=== PATIENT | female | born 1975 | race Caucasian/White ===

== ENCOUNTER 2025-09-04 10:54 | Outpatient (REF) | payer MEDICARE, MEDICAID, SELFPAY ==
--- NOTE | ~2025-09-04 | MM_ITS ---
EXAMINATION: DXA BONE DENSITY AXIAL HISTORY: OSTEOPOROSIS TECHNIQUE: [employer] Dual energy absorptiometry (DEXA) of the lumbar spine, total left hip, and femoral neck was performed. COMPARISON: None FINDINGS: The bone mineral density of the lumbar spine is 0.858 g/cm2, corresponding to a T-score of -2.7, and a Z-score of -2.7. This is indicative of osteoporosis. The bone mineral density of the left total hip is 0.993 g/cm2, corresponding to a T-score of -0.1, and a Z-score of 0.1. This is indicative of normal bone mineral density. The bone mineral density of the left femoral neck is 0.881 g/cm2, corresponding to a T-score of -1.1, and a Z-score of -0.6. This is indicative of osteopenia. FRACTURE RISK: The FRAX index suggests a ten year probability of major osteoporotic fracture of 6.6%, and of hip fracture 0.4%. MM/XR DEXA axial skeleton IMPRESSION: Based on bone mineral density, and according to World Health Organization (WHO) criteria, the diagnosis is consistent with osteoporosis based on lowest T score of -2.7 in the lumbar spine. Treatment Recommendations: NOF guidelines recommend consideration for treatment in postmenopausal women and men age 50 and older presenting with the following: -A hip or vertebral (clinical or morphometric) fracture. -T-score less than or equal to -2.5 at the femoral neck or spine after appropriate evaluation to exclude secondary causes. -Low bone mass at the hip or spine and a 10-year fracture probability by FRAX of greater than or equal to 3% for hip fracture or greater than or equal to 20% for major osteoporotic fracture based on the [place] adapted WHO algorithm. Other Recommendations: All treatment decisions require clinical judgment and consideration of individual patient factors, including patient preferences, comorbidities, previous drug use, risk factors not captured in the FRAX model (e.g. frailty, falls, vitamin D deficiency, increased bone turnover, interval significant decline in bone density) and possible under or overestimation of fracture risk by FRAX. Additional medical evaluation for secondary cause of low bone mineral density may be appropriate. FUTURE SCAN RECOMMENDATION: People with diagnosed cases of osteoporosis or at high risk for fracture should have regular bone mineral density tests. For patients eligible for Medicare, routine testing is allowed once every 2 years. The testing frequency can be increased to one year for patients who have rapidly progressing disease, those who are receiving or discontinuing medical therapy to restore bone mass, or have additional risk factors. Statistically, 68% of repeat scans fall within 1 SD (+/- 0.010 g/cm2 for AP spine L1-L4) and 1 SD (+/- 0.012 g/cm2 for femur total) FRAX is a trademark of the [employer] Met[employer] Disease, a World Health Organization (WHO) Collaborating Center. Electronically signed by: Glory Gallegos MD 09/04/2025 11:44 AM GENARO
--- OUTSIDE RECORDS SUMMARY | 2025-09-04 13:15 | XMS_ITS | Encounter Summary ---
Author Organization [facility] Address [address] [place] [address] Care Team Providers Care Network Operations Lead Name Role Phone Tre Zhoa MD Primary Care Provider [phone] Reason for Visit * Reason Comments Foot Pain Foot pain, right (Pr imary Dx); Hallux varus (acquired), right foot; Arthritis of right foot Encounter Details Date Type Department Care Team (Late st Contact Info) Description 09/04/2025 1:15 PM EST Office Visit Orthopedic Surgery - [place] [id number] [phone] Robert Palmer, DPM [address] [address] Post-operative state (Primary Dx) Social History Tobacco Use Types Packs/Day Years Used Date Smoking Tobacco: Former Cigarettes 0 Q uit: 10/05/2007 Smokeless Tobacco: Never Alcohol Use Standard Drinks/Week Comments Never 0 (1 standard drink = 0.6 oz pur e alcohol) Interpersonal Safety Answer Date Record ed Physical Abuse Unrecognized value 06/09/2025 Verbal Abuse Unrecognized value 06/09/2025 Comments No Sex and Gender Information Value Date Recorded Sex Assigned at Not on file Legal Sex Female 3:17 AM EST Gender Identity Not on file Sexual Orientation Not on file documented as of this encounter Plan of Treatment Pending Results Name Type Priority Associated Diagnoses Date /Time XR Foot 3+ Views Right Imaging Routine Post-operative state 09/04/2025 1:23 PM EST Scheduled Orders Name Type Priority Associated Diagnoses Orde r Schedule XR Foot 3+ Views Right Imaging Routine Post-operative state Expected: 09/04/2025, Expires: 09/04/2026 documented as of this encounter Visit Diagnoses Diagnosis Post-operative state- Primary Other postprocedural status documented in this encounter Care Teams Network Operations Lead Relationship Specialty Start Date End Date Tre Zhao MD [address] [place] [phone] PCP - General Internal Medicine 06/19/21 documented as of this encounter
--- OUTSIDE RECORDS SUMMARY | 2025-09-04 14:08 | XMS_ITS | Encounter Summary ---
Author Organization [facility] Address [address] [place] [address] Phone Care Team Providers Care Electrode Turner And Finisher Name Role Phone Tre Zhao MD Primary Care Provider [phone] Encounter Details Date Type Department Care Team (Late st Contact Info) Description 03/28/2024 Procedure Pass [facility], Ct Scan - [facility] [address] [place] [address] Social History Tobacco Use Types Packs/Day Years Used Date Smoking Tobacco: Former Passive Smoke Exposure: Never Smokeless Tobacco: Never Comments:Former smoker quit 15 yrs ago ~1ppd Alcohol Use Standard Drinks/Week Comments Never 0 (1 standard drink = 0.6 oz pur e alcohol) Education Answer Date Recorded Are you interested in more education? Not on rajeev e 01/30/2023 Are you concerned about learning? Not on file 01/30/2023 No 01/30/2023 No 01/30/2023 Food Answer Date Recorded Within the past 6 months we worried whether our food would run out before we got money to buy more. Never True 03/25/2024 Within the past 6 months the food we bought just didn't last and we didn't have enough money to get more. Never True Residential Stability Answer Date Recor ded What is your housing situation today? I have bridget sing 03/25/2024 How many times have you move d in the past 12 months? Zero (I did not move) 03/25/2024 Paying for Meds Answer Date Recorded Do you have trouble paying for medicines? No 03/25/2024 Paying Utility Bills Answer Date Record ed Do you have trouble paying your heating or elect ricity bill? No 03/25/2024 Transportation Answer Date Recorded Has the lack of transportati on kept you from medical appointments or from getting medications? No 03/25/2024 Digital Access Answer Date Recorded No 03/25/2024 Yes 03/25/2024 Do you have reliable internet access at home? Ye s 03/25/2024 Do you have a device (e.g., phone, tablet, computer) with a working camera? Yes 03/25/2024 Comments Unknown Sex and Gender Information Value Date Recorded Sex Assigned at Female 03/07/2024 8:13 AM EDT Legal Sex Female 9:26 PM EDT Gender Identity Female 03/07/2024 8:13 AM EDT Sexual Orientation Straight 03/07/2024 8: 15 AM EDT documented as of this encounter Plan of Treatment Upcoming Encounters Date Type Department Care Team (Late st Contact Info) Description 11/18/2025 10:15 AM EST Appointment [facility], Bone Density [address] [address] Vipul Arreaga MD [address] [place] [phone] [email or web address] documented as of this encounter Visit Diagnoses Not on filedocumented in this encounter Additional Health Concerns Infection Onset Date Last Indicated Resolved Time CoV-Risk 11/10/2024 11/10/2024 11/21/2024 1:22 AM EST RSV 11/10/2024 11/10/2024 11/17/2024 1:24 AM EST documented as of this encounter Care Teams Electrode Turner And Finisher Relationship Specialty Start Date End Date Tre Zhao MD [address] [place] [address] PCP - General Internal Medicine 12/22/21 documented as of this encounter Additional Source Comments The information contained in this document represents components of the legal health record. It is not the complete legal health record.[facility]
--- OUTSIDE RECORDS SUMMARY | 2025-09-04 14:08 | XMS_ITS | Encounter Summary ---
Author Organization [facility] Address [address] [place] [address] Phone Care Team Providers Care Feller Seam Operator Name Role Phone Tre Zhao MD Primary Care Provider [phone] Encounter Details Date Type Department Care Team (Late st Contact Info) Description 03/13/2024 Procedure Pass [facility], Ct Scan - [facility] [address] [place] [address] Social History Tobacco Use Types Packs/Day Years [...] got money to buy more. Never True 03/07/2024 Within the past 6 months the food we bought just didn't last and we didn't have enough money to get more. Never True Residential Stability Answer Date Recor ded What is your housing situation today? I have bridget sing 03/07/2024 How many times have you move d in the past 12 months? Zero (I did not move) 03/07/2024 Paying for Meds Answer Date Recorded Do you have trouble paying for medicines? No 03/07/2024 Paying Utility Bills Answer Date Record ed Do you have trouble paying your heating or elect ricity bill? No 03/07/2024 Transportation Answer Date Recorded Has the lack of transportati on kept you from medical appointments or from getting medications? No 03/07/2024 Digital Access Answer Date Recorded No 03/07/2024 Yes 03/07/2024 Do you have reliable internet access at home? Ye s 03/07/2024 Do you have a device (e.g., phone, tablet, computer) with a working camera? Yes 03/07/2024 Comments Unknown Sex and Gender Information Value Date Recorded Sex Assigned at Female 03/07/2024 8:13 AM EDT Legal Sex Female 9:26 PM EDT Gender Identity Female 03/07/2024 8:13 AM EDT Sexual Orientation Straight 03/07/2024 8: 15 AM EDT documented as of this encounter Plan of Treatment Upcoming Encounters Date Type Department Care Team (Late st Contact Info) Description 11/18/2025 10:15 AM EST Appointment [facility], Bone Density [address] [address] Vipul Arreaga MD [address] [place] [phone] [email or web address] documented as of this encounter Visit Diagnoses Not on filedocumented in this encounter Additional Health Concerns Infection Onset Date Last Indicated Resolved Time CoV-Risk 11/10/2024 11/10/2024 11/21/2024 1:22 AM EST RSV 11/10/2024 11/10/2024 11/17/2024 1:24 AM EST documented as of this encounter Care Teams Feller Seam Operator Relationship Specialty Start Date End Date Tre Zhao MD [address] [place] [phone] PCP - General Internal Medicine 12/22/21 documented as of this encounter Additional Source Comments The information contained in this document represents components of the legal health record. It is not the complete legal health record.[facility]
--- OUTSIDE RECORDS SUMMARY | 2025-09-04 14:08 | XMS_ITS | Encounter Summary ---
Author Organization [facility] Address [address] [place] [address] Phone Care Team Providers Care Residential Gas Heat Technician Name Role Phone Tre Zhao MD Primary Care Provider [phone] Encounter Details Date Type Department Care Team ([facility] st Contact Info) Description 03/11/2024 Procedure Pass [place] Admitting Dept - Virtual Department [address] [place] [address] Social History Tobacco Use Types Packs/Day Years [...] Info) Description 11/18/2025 10:15 AM EST Appointment [facility], Bone Density [address] [address] Vipul Arreaga MD [address] [place] [phone] [email or web address] documented as of this encounter Visit Diagnoses Not on filedocumented in this encounter Additional Health Concerns Infection Onset Date Last Indicated Resolved Time CoV-Risk 11/10/2024 11/10/2024 11/21/2024 1:22 AM EST RSV 11/10/2024 11/10/2024 11/17/2024 1:24 AM EST documented as of this encounter Care Teams Residential Gas Heat Technician Relationship Specialty Start Date End Date Tre Zhao MD [address] [place] [phone] PCP - General Internal Medicine 12/22/21 documented as of this encounter Additional Source Comments The information contained in this document represents components of the legal health record. It is not the complete legal health record.[facility]
--- OUTSIDE RECORDS SUMMARY | 2025-09-04 14:08 | XMS_ITS | Encounter Summary ---
Author Organization [facility] Address [address] [place] [address] Phone Care Team Providers Care Ship Design Teacher Name Role Phone Tre Zhao MD Primary Care Provider Encounter Details Date Type Department Care Team ([facility] st Contact Info) Description 03/30/2024 Procedure Pass [place] Admitting Dept - Virtual Department [address] [place] [address] Social History Tobacco Use Types Packs/Day Years [...] Info) Description 11/18/2025 10:15 AM EST Appointment [facility], Bone Density [address] [address] Vipul Arreaga MD [address] [place] [phone] [email or web address] documented as of this encounter Visit Diagnoses Not on filedocumented in this encounter Additional Health Concerns Infection Onset Date Last Indicated Resolved Time CoV-Risk 11/10/2024 11/10/2024 11/21/2024 1:22 AM EST RSV 11/10/2024 11/10/2024 11/17/2024 1:24 AM EST documented as of this encounter Care Teams Ship Design Teacher Relationship Specialty Start Date End Date Tre Zhao MD [address] [place] [phone] PCP - General Internal Medicine 12/22/21 documented as of this encounter Additional Source Comments The information contained in this document represents components of the legal health record. It is not the complete legal health record.[facility]
--- OUTSIDE RECORDS SUMMARY | 2025-09-04 14:08 | XMS_ITS | Encounter Summary ---
Author Organization [facility] Address [address] [facility] [address] [place] [address] Phone Care Team Providers Care Ocean Freight Agent Name Role Phone Unknown, Unknown Primary Care Provider Tre Gupta MD Primary Care Provider [phone] Reason for Referral * Occupational Therapy (Routine) - Closed Specialty Diagnoses / Procedures Referred By Ernesto farrell Referred To Contact Occupational Therapy Diagnoses Encounter for rehabilitation Right elbow pain, Procedures evaluate & treat [facility] [address] [place] [address] Phone: tel: fax: [facility] [address] [place] [address] Phone: tel: Referral ID Status Reason Start Date Expiration Date Visits Re quested Visits Authorized [id number] Closed 08/08/2021 10/04/2021 5 5 Encounter Details Date Type Department Care Team (Latest Contact Info) Description 07/23/2021 Transcribe Orders [facility] Rehabilitation Services [address] [place] [address] [facility] [address] [place] [address] Encounter for rehabilitation (Primary Dx) Social History Tobacco Use Types Packs/Day Years Used Date Smoking Tobacco: Never Assessed Comments Unknown Sex and Gender Information Value Date Recorded Sex Assigned at Female 03/07/2024 8:13 AM EDT Legal Sex Female 9:26 PM EDT Gender Identity Female 03/07/2024 8:13 AM EDT Sexual Orientation Straight 03/07/2024 8: 15 AM EDT documented as of this encounter Plan of Treatment Upcoming Encounters Date Type Department Care Team (Late st Contact Info) Description 11/18/2025 10:15 AM EST Appointment [facility], Bone Density [facility] [address] [place] [address] Vipul Arreaga MD [address] [place] [phone] [email or web address] Scheduled Referrals Name Type Priority Associated Diagnoses Orde r Schedule Ambulatory referral to [facility] Physical Therapy Outpatient Referral Routine Encounter for rehabilitation Ordered: 07/23/2021 documented as of this encounter Visit Diagnoses Diagnosis Encounter for rehabilitation- Primary documented in this encounter Additional Health Concerns Infection Onset Date Last Indicated Resolved Time CoV-Risk 12/22/2021 12/22/2021 01/02/2022 1:21 AM EDT CoV-Risk 11/10/2024 11/10/2024 11/21/2024 1:22 AM EST RSV 11/10/2024 11/10/2024 11/17/2024 1:24 AM EST documented as of this encounter Care Teams Ocean Freight Agent Relationship Specialty Start Date End Date Unknown, Unknown, MD PCP - General 07/23/21 12/21/21 Tre Zhao MD [address] [place] [phone] PCP - General Internal Medicine 12/22/21 documented as of this encounter Additional Source Comments The information contained in this document represents components of the legal health record. It is not the complete legal health record.[facility]
--- OUTSIDE RECORDS SUMMARY | 2025-09-04 14:08 | XMS_ITS | Encounter Summary ---
Author Organization [facility] Address [address] [place] [address] Phone Care Team Providers Care Director Life Name Role Phone Tre Zhao MD Primary Care Provider Encounter Details Date Type Department Care Team (Late st Contact Info) Description 03/24/2024 Procedure Pass [facility], Ct Scan - [facility] [address] [place] [address] Social History Tobacco Use Types Packs/Day Years [...] AM EDT documented as of this encounter Functional Status * Calculated C-SSRS Risk Score (Lifetime/Recent) Answer Date of Assessment Author No Risk Indicated 03/24/2024 9:14 PM EDT Marifer Swift RN * Hammond Suicide Severity Rating Scale (Screener/Recent Self-Report) Question Answer Date of Assessment Author 1. Wish to be (Past 1 Month) No 024 9:14 PM EDT Marifer Swift RN 2. Non-Specific Active Suici charly Thoughts (Past 1 Month) No 03/24/2024 9:14 PM EDT Marifer Swift RN 6. Suicidal Behavior (Lifetime) No 9:14 PM EDT Marifer Swift RN documented as of this encounter Plan of Treatment Upcoming Encounters Date Type Department Care Team (Late st Contact Info) Description 11/18/2025 10:15 AM EST Appointment [facility], Bone [facility] [address] [place] [address] Vipul Arreaga MD [address] [place] [phone] [email or web address] documented as of this encounter Visit Diagnoses Not on filedocumented in this encounter Additional Health Concerns Infection Onset Date Last Indicated Resolved Time CoV-Risk 11/10/2024 11/10/2024 11/21/2024 1:22 AM EST RSV 11/10/2024 11/10/2024 11/17/2024 1:24 AM EST documented as of this encounter Care Teams Director Life Relationship Specialty Start Date End Date Tre Zhao MD [address] [place] [phone] PCP - General Internal Medicine 12/22/21 documented as of this encounter Additional Source Comments The information contained in this document represents components of the legal health record. It is not the complete legal health record.[facility]
--- OUTSIDE RECORDS SUMMARY | 2025-09-04 14:08 | XMS_ITS | Encounter Summary ---
Author Organization [facility] Address [address] [place] [address] Phone Care Team Providers Care Buffing Machine Tender Name Role Phone Tre Zhao MD Primary Care Provider [phone] Encounter Details Date Type Department Care Team (Late st Contact Info) Description 05/28/2022 Transcribe Orders [facility] Rehabilitation Services [address] [place] [address] Anjelica Mcgraw MD [address] [facility] [address] [place] [address] [email or web address] Social History Tobacco Use Types Packs/Day Years Used Date Smoking Tobacco: Former Smokeless Tobacco: Never Alcohol Use Standard Drinks/Week Comments Never 0 (1 standard drink = 0.6 oz pur e alcohol) Comments Unknown Sex and Gender Information Value Date Recorded Sex Assigned at Female 03/07/2024 8:13 AM EDT Legal Sex Female 9:26 PM EDT Gender Identity Female 03/07/2024 8:13 AM EDT Sexual Orientation Straight 03/07/2024 8: 15 AM EDT documented as of this encounter Plan of Treatment Upcoming Encounters Date Type Department Care Team (Late st Contact Info) Description 11/18/2025 10:15 AM EST Appointment [facility], Bone Density - [facility] [address] [place] [address] Vipul Arreaga MD [address] [place] [phone] [email or web address] documented as of this encounter Visit Diagnoses Not on filedocumented in this encounter Additional Health Concerns Infection Onset Date Last Indicated Resolved Time CoV-Risk 11/10/2024 11/10/2024 11/21/2024 1:22 AM EST RSV 11/10/2024 11/10/2024 11/17/2024 1:24 AM EST documented as of this encounter Care Teams Buffing Machine Tender Relationship Specialty Start Date End Date Tre Zhao MD [address] [place] [phone] PCP - General Internal Medicine 12/22/21 documented as of this encounter Additional Source Comments The information contained in this document represents components of the legal health record. It is not the complete legal health record.[facility]
--- OUTSIDE RECORDS SUMMARY | 2025-09-04 14:08 | XMS_ITS | Encounter Summary ---
Author Organization [facility] Address [address] [place] [address] Phone Care Team Providers Care Systems Integration Analyst Name Role Phone Tre Zhao MD Primary Care Provider [phone] Encounter Details Date Type Department Care Team (Late st Contact Info) Description 05/28/2022 Transcribe Orders [facility] Rehabilitation Services [address] [place] [address] Anjelica Mcgraw MD [address] [facility] [address] [place] [address] [email or web address] Social History Tobacco Use Types Packs/Day Years [...] Info) Description 11/18/2025 10:15 AM EST Appointment [facility], Bone Density - [facility] [address] [place] [address] Vipul Arreaga MD [address] [place] [phone] [email or web address] documented as of this encounter Visit Diagnoses Not on filedocumented in this encounter Additional Health Concerns Infection Onset Date Last Indicated Resolved Time CoV-Risk 11/10/2024 11/10/2024 11/21/2024 1:22 AM EST RSV 11/10/2024 11/10/2024 11/17/2024 1:24 AM EST documented as of this encounter Care Teams Systems Integration Analyst Relationship Specialty Start Date End Date Tre Zhao MD [address] [place] [phone] PCP - General Internal Medicine 12/22/21 documented as of this encounter Additional Source Comments The information contained in this document represents components of the legal health record. It is not the complete legal health record.[facility]
--- OUTSIDE RECORDS SUMMARY | 2025-09-04 14:09 | XMS_ITS | Encounter Summary ---
Author Organization [facility] Address [address] [place] [address] Phone Care Team Providers Care Pmo Analyst Name Role Phone Tre Zhao MD Primary Care Provider Encounter Details Date Type Department Care Team (Latest Contact Info) Description 06/30/2025 Transcribe Orders Virtual Department [address] [place] [address] Vipul Arreaga MD [address] [place] [phone] [email or web address] Wedge compression fracture of T11-T12 vertebra, initial encounter for closed fracture (Primary Dx) Social History Tobacco Use Types Packs/Day Years Used Date Smoking Tobacco: Former Cigarettes Q uit: 2010 Passive Smoke Exposure: Never Smokeless Tobacco: Never Comments:Former smoker quit 15 yrs ago ~1ppd Alcohol Use Standard Drinks/Week Comments Never 0 (1 standard drink = 0.6 oz pur e alcohol) Home Health Assessment: Transportation Answer Date Recorded Lack of Transportation (Medical) No 05/19/2024 Lack of Transportation (Non-Medical) No 05/19/2024 Patient Unable or Declines to Respond No 05/19/2024 Education Answer Date Recorded Are you interested in more education? Not on rajeev e 01/30/2023 Are you concerned about learning? Not on file 01/30/2023 No 01/30/2023 No 01/30/2023 Food Answer Date Recorded Within the past 6 months we worried whether our food would run out before we got money to buy more. Never True 05/19/2025 Within the past 6 months the food we bought just didn't last and we didn't have enough money to get more. Never True Residential Stability Answer Date Recor ded What is your housing situation today? I have bridget de la cruz 05/19/2025 How many times have you move d in the past 12 months? Zero (I did not move) 05/19/2025 Paying for Meds Answer Date Recorded Do you have trouble paying for medicines? No 05/19/2025 Paying Utility Bills Answer Date Record ed Do you have trouble paying your heating or elect ricity bill? No 05/19/2025 Transportation Answer Date Recorded Has the lack of transportati on kept you from medical appointments or from getting medications? No 05/19/2025 Digital Access Answer Date Recorded No 05/19/2025 Yes 05/19/2025 Do you have reliable internet access at home? Ye s 05/19/2025 Do you have a device (e.g., phone, tablet, computer) with a working camera? Yes 05/19/2025 Intimate Partner Violence Answer Date R ecorded Are you denied basic needs s uch as food, clothing, or medical care? No 05/18/2025 In the past 12 months have y ou been in a relationship with a person who hurts, threatens, or tries to control you? No 05/18/2025 Are you denied basic needs s uch as food, clothing, or medical care? No 05/18/2025 In the past 12 months have y ou been in a relationship with a person who hurts, threatens, or tries to control you? No 05/18/2025 Comments No Sex and Gender Information Value Date Recorded Sex Assigned at Female 03/07/2024 8:13 AM EDT Legal Sex Female 9:26 PM EDT Gender Identity Female 03/07/2024 8:13 AM EDT Sexual Orientation Straight 03/07/2024 8: 15 AM EDT documented as of this encounter Plan of Treatment Upcoming Encounters Date Type Department Care Team (Late st Contact Info) Description 11/18/2025 10:15 AM EST Appointment [facility], Bone Density [address] [address] Vipul Arreaga MD [address] [place] [phone] Scheduled Orders Name Type Priority Associated Diagnoses Orde r Schedule DXA Screening Imaging Routine Wedge compression fracture of T11-T12 vertebra, initial encounter for closed fracture Expected: 07/30/2025, Expires: 06/30/2026 documented as of this encounter Visit Diagnoses Diagnosis Wedge compression fracture of T11-T12 vertebra, initial encounter for closed fracture- Primary documented in this encounter Care Teams Pmo Analyst Relationship Specialty Start Date End Date Tre Zhao MD [address] [place] [phone] PCP - General Internal Medicine 12/22/21 documented as of this encounter Additional Source Comments The information contained in this document represents components of the legal health record. It is not the complete legal health record.[facility]
--- OUTSIDE RECORDS SUMMARY | 2025-09-04 14:09 | XMS_ITS | Clinical Summary ---
Author Organization [facility] Address [address] [facility] [address] [place] [phone] Phone Care Team Providers Care Machine Precision Etcher Name Role Phone Cornelia Mary MD Primary Care Provider [phone] Allergies No known active allergies Medications omeprazole (PRILOSEC) 20 MG capsule 4 Active busPIRone (BUSPAR) 15 MG tablet Take 15 mg by mouth 2 (two) times a day. 4 Active sertraline (ZOLOFT) 100 MG tablet Take 2 tablets by mouth every morning. 4 Active gabapentin (NEURONTIN) 300 MG capsule Take 300 mg by mouth 3 (three) times a day. Active acetaminophen (TYLENOL) 325 mg tablet Take 2 tablets (650 mg total) by mouth every 6 (six) hours as needed. 4 Active HYDROmorphone (DILAUDID) 2 MG tablet Take 1 tablet (2 mg total) by mouth every 3 (three) hours as needed. Partial fill ok 20 tablet 4 Active valACYclovir (VALTREX) 500 MG tablet TAKE 1 TABLET BY MOUTH ONCE DAILY DRINK PLENTY OF FLUIDS Active ketoconazole 2 % cream Apply topically. 4 Active hydrocortisone 2.5 % cream Apply topically 2 (two) times a day. 28 g 1 4 Active lidocaine (XYLOCAINE) 2 % mucosal gel jelly Apply topically as needed. Apply to Anus every 4 hours as needed 30 mL 4 Active venlafaxine (EFFEXOR-XR) 37.5 MG 24 hr capsule TAKE 1 CAPSULE BY MOUTH DAILY FOR TWO WEEKS, THEN INCREASE TO 2 CAPSULES DAILY 5 Active CRESTOR 5 mg tablet Take 5 mg by mouth. 5 Active pantoprazole (PROTONIX) 40 MG tablet Take 1 tablet by mouth every morning. 5 Active buPROPion (WELLBUTRIN XL) 150 MG ER 24 hr tablet Take 1 tablet by mouth every morning. 5 Active ALPRAZolam (XANAX) 1 MG tablet TAKE 1 TABLET BY MOUTH ONE HOUR PRIOR TO INJECTION 4 Active fluocinonide 0.05 % cream APPLY CREAM EXTERNALLY TWICE DAILY NEEDED TO HANDS AND FEET, DECREASE USE SYMPTOMS IMPROVE 5 Active ondansetron (ZOFRAN-ODT) 4 MG disintegrating tablet Take 1 tablet (4 mg total) by mouth every 8 (eight) hours as needed for nausea. 15 tablet 5 Active oxyCODONE 5 MG immediate release tablet Take 1 tablet (5 mg total) by mouth every 4 (four) hours as needed for pain (specific location in comments). Partial fill ok 10 tablet 5 Active Active Problems Problem Noted Date Diagnosed Date S/P closure of ileostomy 09/26/2024 Right ureteral stone 04/26/2024 Hypophosphatemia 03/31/2024 Assessment & Plan (04/05/2024 10:23 AM EDT): -Monitor daily while on TPN -C/W TPN for now, monitoring intake and monitoring for improvement in ostomy output History of tubal ligation 03/25/2024 Overview (03/25/2024): 2004 History of COVID-19 03/25/2024 Family history of breast cancer 03/25/2024 Thoracic outlet syndrome 03/25/2024 Left lower quadrant abdominal pain 03/25/2024 Right kidney stone 03/10/2024 Assessment & Plan (03/14/2024 10:04 AM EDT): Pt developed right sided abd pain initially thought to be due to perf diverticulitis. Repeat CT scan 03/10 did show small right renal calculus with mild right sided hydronephrosis Urology consulted ,did stent placement 03/11. Needs outpatient follow-up for definitive treatment of stone No evidence uti, ua neg Diverticulitis 03/07/2024 Assessment & Plan (04/06/2024 2:18 PM EDT): Readmission for new focally inflamed diverticulitis of the more proximal sigmoid colon, more inflamed than the initial area of diverticulitis without gross perforation. Pt was previously admitted 03/07. There is a redemonstration of perforated diverticulitis of mid sigmoid colon. Failure of outpatient antibiotics. Repeat CT scan 03/28: Redemonstration of perforated diverticulitis of the sigmoid colon with interval decrease in adjacent foci of extraluminal air. Similar to mild equivocal increase in adjacent phlegmonous and inflammatory changes. No discrete fluid collection, no CT findings to suggest perforation. Due to persistent symptoms plan for OR today. Laparoscopic colectomy sigmoid with diverting loop ileostomy, central line placement performed with Dr. Zeng on 03/30. Patient completed 7 days of ceftriaxone and metronidazole treatment on 04/01 04/03: POD #4. Abdominal pain improving. Tolerating low fiber diet without nausea and vomiting. Output falling appropriately BNP and electrolytes within normal limits. Patient is on Imodium 2 mg 3 times daily . -Continue Imodium 3 times daily and as needed - Continue to monitor ileostomy output with goal to be less than 1 L Will begin to taper TPN and encourage oral intake -- still has poor appetite. Wants to try pizza which doesn't seem like a great plan to me Remove central line prior to discharge Probiotic - Pain management with scheduled Tylenol, Percocet. As needed ibuprofen, oxycodone Seen by band sawyer with teaching begun -Compazine as needed Assessment & Plan (03/27/2024 8:16 AM EDT): Readmission for new focally inflamed diverticulitis of the more proximal sigmoid colon, more inflamed than the initial area of diverticulitis without gross perforation. There is a redemonstration of perforated diverticulitis of mid sigmoid colon. She is passing gas. - advance to full liquid - IV fluids, aggressive hydration - IV ceftriaxone and metronidazole - pain management with ketorolac, IV and PO opioids - Surgery consult, possible intervention if not improving, but no acute intervention planned Assessment & Plan (03/15/2024 10:04 AM EDT): Patient presented with 2 days of epigastric and suprapubic abdominal pain that started when she awoke on 03/05. Associated with nausea, vomiting, diarrhea. CT abd showed acute perforated diverticulitis of the mid sigmoid colon with multiple contained locules of gas within the left hemipelvis Surgery consulted, Dr. Zeng following Receiving ceftriaxone Flagyl, transition to p.o. Augmentin on 03/[address] scan 03/10 due to continued pain to rule out abscess, no abscess seen. Patient improving very slowly, continuing to have nausea/vomiting with abdominal pain. Repeat CT, done on 03/13 not showing any abscess. PPN provided from 03/13 to 03/14 During hospitalization GI also consulted - recommended outpatient follow up for repeat colonoscopy. Note --Hx Occult blood positive ,with intermittent rectal bleeding for > 1 yr had a EGD/colon this past year with Dr. Borrero without signs of diverticulosis. Anxiety 03/07/2024 Assessment & Plan (03/14/2024 9:55 AM EDT): Pt with history anxiety and depression home buspirone 15 mg twice daily And sertraline 200 mg daily ordered Overall has not been able to tolerate these medications due to nausea Left lumbar radiculopathy 01/28/2024 Assessment & Plan (03/10/2024 9:41 AM EDT): Pt with PMH including lumbar disc herniation following a sneeze s/p L5-S1 laminectomy in 2020 @ [facility] with residual bowel and bladder incontinence and LLE numbness and weakness. - Pt does have upcoming appt with [facility] for a second opinion Hiatal hernia 01/28/2024 Class 1 obesity 01/28/2024 Incontinence of bowel 01/28/2024 Incontinent of urine 01/28/2024 Acute back pain with sciatica 12/30/2023 Assessment & Plan (04/02/2024 5:28 PM EDT): Symptoms moderately controlled. -Continues with gabapentin 100 mg 3 times daily Acid reflux 10/09/2023 Generalized anxiety disorder 07/31/2022 Assessment & Plan (03/28/2024 11:20 AM EDT): Continue buspar and zoloft Assessment & Plan (03/25/2024 2:00 PM EDT): Restart buspar and zoloft when able to take PO Resolved Problems Problem Noted Date Diagnosed Date Resolved Date Ileostomy in place 09/12/2024 4 Encounters Date Type Department Care Team Description 06/30/2025 Transcribe Orders Virtual Department [address] [place] [id number] Vipul Arreaga MD Wedge compression fracture of T11-T12 vertebra, initial encounter for closed fracture (Primary Dx) 06/23/2025 8:15 AM EDT - 06/23/2025 11:59 PM EDT Hospital Encounter [address] [address] Vipul Arreaga MD Discharge Disposition: Home or Self Care 06/23/2025 8:09 AM EDT - 06/23/2025 8:14 AM EDT Hospital Encounter [address] [phone] Vipul Arreaga MD Discharge Disposition: Home or Self Care 05/29/2025 Procedure Pass [address] [phone] 05/24/2025 Procedure Pass [address] [id number] from Last 3 Months Immunizations Immunization Administration Dates Next Due INFLUENZA, SPLIT VIRUS, TRIVALENT W/ PRESERVATIV E IM 10/12/2018 Influenza Quadrivalent MDCK Preservative Free IM 06/21/2020 Tdap 10/01/2011 Family History Medical History Relation Comments Breast cancer Mother Relation Status Comments Mother Social History Tobacco Use Types Packs/Day Years Used Date Smoking Tobacco: Former Cigarettes Q uit: 2010 Passive Smoke Exposure: Never Smokeless Tobacco: Never Tobacco Cessation:Counseling Given: Not Answered Comments:Former smoker quit 15 yrs ago ~1ppd [...] housing situation today? I have bridget sing 05/19/2025 How many times have you move [...] Orientation Straight 03/07/2024 8: 15 AM EDT Last Filed Vital Signs Vital Sign Reading Time Taken Comments Blood Pressure 105/73 05/19/2025 2:40 AM EDT Pulse 55 05/19/2025 2:40 AM EDT Temperature 36.4 C (97.5 F) 05/19/2025 2:40 AM EDT Respiratory Rate 16 05/19/2025 2:40 AM EDT Oxygen Saturation 97% 05/19/2025 2:40 AM EDT Inhaled Oxygen Concentration - - Weight 72.6 kg (160 lb) 06/17/2025 3:17 PM EDT Height 157.5 cm (5' 2 ) 06/17/2025 3:17 PM EDT Body Mass Index 29.26 06/17/2025 3:17 PM EDT Plan of Treatment Upcoming Encounters Date Type Department Care Team (Late st Contact Info) Description 11/18/2025 10:15 AM EST Appointment [facility], Bone Density [facility] [address] [place] [address] Vipul Arreaga MD [address] [place] [phone] [email or web address] Health Maintenance Due Date Last Done Comments LIPID PANEL 1977 DEPRESSION SCREENING 1989 HEPATITIS C SCREENING 1995 HIV ONE-TIME SCREENING (18-6 5 YEARS) 1995 PAP SMEAR 1998 MAMMOGRAM 2017 Adult Td,Tdap Booster 10/01/2021 10/01/2011 COLOGUARD 2022 COLONOSCOPY 2022 FOBT 2022 VIRTUAL COLONOSCOPY 2022 FIT TEST 03/09/2025 03/09/2024 INFLUENZA VACCINE (#1) 2025 0, 10/12/2018 COVID-19 VACCINE (3 - 2024-2 6 season) 2025 10/16/2021, 12/20/2020 SMOKING Hx and SMOKELESS TOBACCO SCREENING 12/13/2025 12/13/2024 SCREENING FOR DIABETES 05/18/2028 5, 03/31/2024 COLORECTAL CANCER SCREENING 06/23/2029 SIGMOIDOSCOPY 06/23/2029 06/23/2024, 06/01/2024, 05/17/2024 HEPATITIS A VACCINES Aged Out No long er eligible based on patient's age to complete this topic HIB VACCINES Aged Out No longer eligi ble based on patient's age to complete this topic MENINGOCOCCAL VACCINES (ACWY) Aged Out No longer eligible based on patient's age to complete this topic MENINGOCOCCAL VACCINES (B) Aged Out N o longer eligible based on patient's age to complete this topic PNEUMOCOCCAL VACCINES (0-49 years) Aged Out No longer eligible b ased on patient's age to complete this topic Medical Devices Implanted Type Area Customer Program Specialist Device Identifier Shelf Expiration Date Model / Serial / Lot Hardware Right: Foot Stent Ureteral 6fr 22 To 30cm Stretch Coated Josselin - [id number] Implanted:Qty : 1 on 03/11/2024 by Andre Sarkar MD at [facility] Right: Ureter [employer] [id number] 09/21/2026 [id number] / / [id number] Stent Ureteral 6fr 22 To 30cm Stretch Coated Josselin - [id number] Implanted:Qty : 1 on 04/26/2024 by Gerhard Méndez MD at [facility] Right: Ureter [employer] [id number] 11/19/2026 [id number] / / [id number] Procedures Procedure Name Priority Date/Time Associated Diagnosis Comments MRI LUMBAR SPINE (NEURO) WITHOUT CONTRAST Routine 06/23/2025 10:04 AM EDT Intervertebral disc disorders with radiculopathy, lumbar region MRI THORACIC SPINE (NEURO) WITHOUT CONTRAST Routine 06/23/2025 9:56 AM EDT Wedge compression fracture of T11-T12 vertebra, initial encounter for closed fracture ENDOSCOPY, SIGMOID 06/23/2024 3: 17 PM EDT FECAL IMMUNOCHEMICAL BLOOD TEST X1 (FIT) Routine 03/09/2024 1:36 PM EDT from Last 3 Months or Most Recently Relevant to Health Maintenance Results * MRI LUMBAR SPINE (NEURO) WITHOUT CONTRAST (06/23/2025 10:04 AM EDT) Anatomical Region Laterality Modality L-spine Magnetic Resonan ce 06/23/2025 10:1 2 AM EDT Impressions 06/23/2025 10:19 AM EDT 1. Acute to subacute mild anterior wedge compression deformity of the T12 vertebral body, with less than 25% loss of vertebral body height and no significant retropulsion. 2. Mild lumbar spondylosis, without high-grade canal or foraminal narrowing. Narrative 06/23/2025 10:19 AM EDT MRI THORACIC SPINE (NEURO) WITHOUT CONTRAST, MRI LUMBAR SPINE (NEURO) WITHOUT CONTRAST Referring clinician's provided indication for this examination in Epic: Outside Radiology Order; wedge compression fracture TECHNIQUE: MRI THORACIC SPINE (NEURO) WITHOUT CONTRAST, MRI LUMBAR SPINE (NEURO) WITHOUT CONTRAST Multi-sequence, multi-planar MRI of the thoracic spine was performed without intravenous contrast. Multi-sequence, multi-planar MRI of the lumbar spine was performed without intravenous contrast. COMPARISON: None. FINDINGS: THORACIC SPINE: Alignment and Vertebrae: Mild anterior wedging deformity of the T12 vertebral body, with decreased T1 signal increased and increased STIR signal along the superior endplate. There is less than 25% loss of vertebral body height. There is no significant retropulsion. Marrow: No bone marrow replacing lesion. Discs and Endplates: Normal intervertebral disc heights and signal. Spinal Cord: Normal. No spinal cord compression or signal abnormality. Soft Tissue: Normal. No prevertebral edema. Other Findings: None. LUMBAR SPINE: Alignment and Vertebrae: Normal alignment. No acute compression fracture. Marrow: No bone marrow replacing lesion. Discs and Endplates: Mild disc height loss at L5-S1, with Modic 1 changes. Conus: Normal. Soft Tissues: Normal. No prevertebral edema. Other Findings: None. Findings by level: T12-L1: Negative L1-L2: Mild diffuse disc bulge, without significant canal or foraminal narrowing. L2-L3: Mild diffuse disc bulge, without significant canal or foraminal narrowing. L3-L4: Mild bilateral facet arthropathy, without significant canal or foraminal narrowing. L4-L5: Moderate right and mild facet arthropathy. No significant canal or foraminal narrowing. L5-S1: Moderate bilateral facet arthropathy. Minimal diffuse disc bulge. Mild bilateral foraminal narrowing. There is a possible conjoined left L5-S1 nerve root, suboptimally evaluated due to motion artifact. Procedure Note Marbin Sargent MD - 06/23/2025 MRI THORACIC SPINE (NEURO) WITHOUT CONTRAST, MRI LUMBAR SPINE (NEURO)WITHOUT CONTRAST Referring clinician's provided indication for this examination in Epic:Outside Radiology Order; wedge compression fracture TECHNIQUE: MRI THORACIC SPINE (NEURO) WITHOUT CONTRAST, MRI LUMBAR SPINE(NEURO) WITHOUT CONTRAST Multi-sequence, multi-planar MRI of the thoracic spine was performedwithout intravenous contrast. Multi-sequence, multi-planar MRI of the lumbar spine was performed withoutintravenous contrast. COMPARISON: None. FINDINGS: THORACIC SPINE: Alignment and Vertebrae: Mild anterior wedging deformity of the [id number] body, with decreased T1 signal increased and increased STIRsignal along the superior endplate. There is less than 25% loss ofvertebral body height. There is no significant retropulsion. Marrow: No bone marrow replacing lesion. Discs and Endplates: Normal intervertebral disc heights and signal. Spinal Cord: Normal. No spinal cord compression or signal abnormality. Soft Tissue: Normal. No prevertebral edema. Other Findings: None. LUMBAR SPINE: Alignment and Vertebrae: Normal alignment. No acute compressionfracture. Marrow: No bone marrow replacing lesion. Discs and Endplates: Mild disc height loss at L5-S1, with Modic 1changes. Conus: Normal. Soft Tissues: Normal. No prevertebral edema. Other Findings: None. Findings by level: T12-L1: Negative L1-L2: Mild diffuse disc bulge, without significant canal or foraminalnarrowing. L2-L3: Mild diffuse disc bulge, without significant canal or foraminalnarrowing. L3-L4: Mild bilateral facet arthropathy, without significant canal orforaminal narrowing. L4-L5: Moderate right and mild facet arthropathy. No significant canal orforaminal narrowing. L5-S1: Moderate bilateral facet arthropathy. Minimal diffuse disc bulge.Mild bilateral foraminal narrowing. There is a possible conjoined leftL5-S1 nerve root, suboptimally evaluated due to motion artifact. IMPRESSION: 1. Acute to subacute mild anterior wedge compression deformity of the [id number] body, with less than 25% loss of vertebral body height and nosignificant retropulsion. 2. Mild lumbar spondylosis, without high-grade canal or foraminalnarrowing. Vipul Arreaga MD IMG MR XSPECIALTY Final Result * MRI THORACIC SPINE (NEURO) WITHOUT CONTRAST (06/23/2025 9:56 AM EDT) Anatomical Region Laterality Modality T-spine Magnetic Resonan ce 06/23/2025 10:1 2 AM EDT Impressions 06/23/2025 10:19 AM EDT 1. Acute to subacute mild anterior wedge compression deformity of the T12 vertebral body, with less than 25% loss of vertebral body height and no significant retropulsion. 2. Mild lumbar spondylosis, without high-grade canal or foraminal narrowing. Narrative 06/23/2025 10:19 AM EDT MRI THORACIC SPINE (NEURO) WITHOUT CONTRAST, MRI LUMBAR SPINE (NEURO) WITHOUT CONTRAST Referring clinician's provided indication for this examination in Epic: Outside Radiology Order; wedge compression fracture TECHNIQUE: MRI THORACIC SPINE (NEURO) WITHOUT CONTRAST, MRI LUMBAR SPINE (NEURO) WITHOUT CONTRAST Multi-sequence, multi-planar MRI of the thoracic spine was performed without intravenous contrast. Multi-sequence, multi-planar MRI of the lumbar spine was performed without intravenous contrast. COMPARISON: None. FINDINGS: THORACIC SPINE: Alignment and Vertebrae: Mild anterior wedging deformity of the T12 vertebral body, with decreased T1 signal increased and increased STIR signal along the superior endplate. There is less than 25% loss of vertebral body height. There is no significant retropulsion. Marrow: No bone marrow replacing lesion. Discs and Endplates: Normal intervertebral disc heights and signal. Spinal Cord: Normal. No spinal cord compression or signal abnormality. Soft Tissue: Normal. No prevertebral edema. Other Findings: None. LUMBAR SPINE: Alignment and Vertebrae: Normal alignment. No acute compression fracture. Marrow: No bone marrow replacing lesion. Discs and Endplates: Mild disc height loss at L5-S1, with Modic 1 changes. Conus: Normal. Soft Tissues: Normal. No prevertebral edema. Other Findings: None. Findings by level: T12-L1: Negative L1-L2: Mild diffuse disc bulge, without significant canal or foraminal narrowing. L2-L3: Mild diffuse disc bulge, without significant canal or foraminal narrowing. L3-L4: Mild bilateral facet arthropathy, without significant canal or foraminal narrowing. L4-L5: Moderate right and mild facet arthropathy. No significant canal or foraminal narrowing. L5-S1: Moderate bilateral facet arthropathy. Minimal diffuse disc bulge. Mild bilateral foraminal narrowing. There is a possible conjoined left L5-S1 nerve root, suboptimally evaluated due to motion artifact. Procedure Note Marbin Sargent MD - 06/23/2025 MRI THORACIC SPINE (NEURO) WITHOUT CONTRAST, MRI LUMBAR SPINE (NEURO)WITHOUT CONTRAST Referring clinician's provided indication for this examination in Epic:Outside Radiology Order; wedge compression fracture TECHNIQUE: MRI THORACIC SPINE (NEURO) WITHOUT CONTRAST, MRI LUMBAR SPINE(NEURO) WITHOUT CONTRAST Multi-sequence, multi-planar MRI of the thoracic spine was performedwithout intravenous contrast. Multi-sequence, multi-planar MRI of the lumbar spine was performed withoutintravenous contrast. COMPARISON: None. FINDINGS: THORACIC SPINE: Alignment and Vertebrae: Mild anterior wedging deformity of the [id number] body, with decreased T1 signal increased and increased STIRsignal along the superior endplate. There is less than 25% loss ofvertebral body height. There is no significant retropulsion. Marrow: No bone marrow replacing lesion. Discs and Endplates: Normal intervertebral disc heights and signal. Spinal Cord: Normal. No spinal cord compression or signal abnormality. Soft Tissue: Normal. No prevertebral edema. Other Findings: None. LUMBAR SPINE: Alignment and Vertebrae: Normal alignment. No acute compressionfracture. Marrow: No bone marrow replacing lesion. Discs and Endplates: Mild disc height loss at L5-S1, with Modic 1changes. Conus: Normal. Soft Tissues: Normal. No prevertebral edema. Other Findings: None. Findings by level: T12-L1: Negative L1-L2: Mild diffuse disc bulge, without significant canal or foraminalnarrowing. L2-L3: Mild diffuse disc bulge, without significant canal or foraminalnarrowing. L3-L4: Mild bilateral facet arthropathy, without significant canal orforaminal narrowing. L4-L5: Moderate right and mild facet arthropathy. No significant canal orforaminal narrowing. L5-S1: Moderate bilateral facet arthropathy. Minimal diffuse disc bulge.Mild bilateral foraminal narrowing. There is a possible conjoined leftL5-S1 nerve root, suboptimally evaluated due to motion artifact. IMPRESSION: 1. Acute to subacute mild anterior wedge compression deformity of the [id number] body, with less than 25% loss of vertebral body height and nosignificant retropulsion. 2. Mild lumbar spondylosis, without high-grade canal or foraminalnarrowing. Vipul Arreaga MD [facility] MR XSPECIALTY Final Result * ENDOSCOPY, SIGMOID (06/23/2024 3:17 PM EDT) Narrative Transcriptions Flory Borrero MD - 06/23/2024 3:17 PM EDT [facility] Patient Name: Brenda Navarro Orozco MD:: FLORY BORRERO MD, Procedure Date: 06/23/2024 3:17 PM Date of : 1975 Age: 48 Admit Type: Outpatient Gender: Female Room: [facility] Referring MD: CORNELIA MARY MD Exam Type: Flexible Sigmoidoscopy Indications: anastamotic stricture Medications: Monitored Anesthesia Care Procedure: Informed consent was obtained from the patientafter discussion of the indications, limitations, alternatives, benefits, and risks of the procedure. Risks specifically discussed include but are not limited to medication reactions, missed lesions, bleeding, perforation, or the need for emergent surgery. Throughout the procedure, the patient's blood pressure, pulse, end-tidal CO2, and oxygensaturations were monitored continuously. The Olympus adult variable colonoscope [id number] #5 was introduced through the anus and advanced to the sigmoid colon. The flexible sigmoidoscopy was accomplished without difficulty. The patient tolerated the procedurewell. The quality of the bowel preparation was good. Complications: No immediate complications. Estimated blood loss:None. Findings: There was evidence of a prior functional end-to-end colo-colonic anastomosis in the recto-sigmoidcolon. This was patent and was characterized by moderate stenosis measuring ~14mm. The anastomosis was traversed after dilation. A TTS dilator was passed through the scope. Dilation with a 15-16.5-18 mm colonic balloon dilator was performed to 18mm. The dilation site was examined following endoscope reinsertion and showed moderate mucosaldisruption. Impression: - Patent functional end-to-end colo-colonic anastomosis, characterized by moderate stenosis. Dilated. - No specimens collected. Recommendation: - The patient will be observed post-procedure,until all discharge criteria are met. - Repeat flexible sigmoidoscopy in 3 weeks for retreatment with goal to dilate to 20mm tofacilitate reversal of colostomy with Dr Zeng. Flory Borrero FLORY BORRERO MD 06/23/2024 4:00:20 PM This report has been signed electronically. Number of Addenda: 0 Note Initiated On: 06/23/2024 3:17 PM Procedure Date: 06/23/2024 3:17:[address] [place] [id number] [place] Cornelia Mary MD GI PROCEDURE ORDERABLES Final Result * (ABNORMAL) Fecal immunochemical test x1 (FIT) (03/09/2024 1:36 PM EDT) Immuno Fecal Occult Positive(A ) Negative [facility] Stool (Stool) 03/09/2024 1:3 6 PM EDT 03/09/2024 1:55 PM EDT us Nimisha Ferguson [facility] BODY FLUIDS AND STOO L ORDERABLES Final Result [facility] [address] [place] [address] from Last 3 Months or Most Recently Relevant to Health Maintenance Insurance [facility] PART A & B [facility] B Member Subscriber Plan / Payer (Ef fective 2025-) Name:Brenda Briceño Member ID:[id number] Relation to Subscriber:Self Name:Brenda Briceño Subscriber ID:[id number] Payer ID:[id number] Group ID:Not on file Type:Medicare Address: [facility] [employer] [facility] [address] [place] [id number] [facility] A & B [place] [facility] & B [facility] [place] Advance Directives For more information, please contact: [phone] (9AM - 5PM [facility], Thursday-Thursday) Documents on File Type Date Recorded Patient Seedling Puller Expl anation Healthcare Proxy 09/19/2024 4:10 PM * Full Code (Latest Code Status on File) Date Activated Date Inactivated Comments 09/12/2024 1:30 PM Question Answer Comments Code Status Confirmed With: Patient * Full Code Date Activated Date Inactivated Comments 09/12/2024 6:27 AM 09/12/2024 1:30 PM Question Answer Comments Code Status Confirmed With: Patient * Full Code Date Activated Date Inactivated Comments 03/25/2024 10:26 AM 09/12/2024 6:27 AM Question Answer Comments Code Status Confirmed With: Patient * Full Code Date Activated Date Inactivated Comments 03/07/2024 4:02 PM 03/25/2024 10:26 AM Question Answer Comments Code Status Confirmed With: Patient Care Teams Machine Precision Etcher Relationship Specialty Start Date End Date Cornelia Mary MD [address] [place] [address] PCP - General Internal Medicine 12/22/21 Additional Source Comments The information contained in this document represents components of the legal health record. It is not the complete legal health record.[facility]
--- OUTSIDE RECORDS SUMMARY | 2025-09-04 14:09 | XMS_ITS | Clinical Summary ---
Author Organization [address] [facility] Address [address] [place] [address] Phone Care Team Providers Care Lending Manager Name Role Phone Tre Zhao MD Primary Care Provider [phone] Allergies No known active allergies Medications busPIRone (BUSPAR) 15 mg tablet Take 1 tablet (15 mg total) by mouth 2 (two) times a day. Active pantoprazole (PROTONIX) 40 mg EC tablet Take 1 tablet (40 mg total) by mouth 2 (two) times a day. 5 Active amoxicillin-cla vulanate (AUGMENTIN) 875-125 mg per tablet Take 1 tablet by mouth if needed. 5 Active Wellbutrin XL 150 mg 24 hr tablet Take 1 tablet (150 mg total) by mouth 1 (one) time each day. 5 Active gabapentin (NEURONTIN) 300 mg capsule Take 1 capsule (300 mg total) by mouth 3 (three) times a day. Active venlafaxine XR (EFFEXOR-XR) 150 mg 24 hr capsule Take 1 capsule (150 mg total) by mouth 1 (one) time each day. Active rosuvastatin (CRESTOR) 5 mg tablet Take 1 tablet (5 mg total) by mouth 1 (one) time each day. Active clobetasoL (TEMOVATE) 0.05 % cream APPLY CREAM TOPICALLY TWICE DAILY NEEDED TO HANDS, FEET FOR FLARES, DECREASE SYMPTOMS IMPROVE 5 Active valACYclovir (VALTREX) 500 mg tablet Take 1 tablet (500 mg total) by mouth 1 (one) time each day. Active Active Problems Problem Noted Date Diagnosed Date Thoracic outlet syndrome 09/22/2022 Overview (11/30/2024): Last Assessment & Plan: Ms. Briceño is a 47 yr. female presenting for their 2 week follow-up status post Right da Luis/VATS first rib resection and decompression of the brachial plexus and neurolysis. She states that she has noticed some improvement in her right upper extremity symptoms such as decreased numbness and tingling along her right arm and has also noticed that she can turn her neck much more easily without having neck discomfort. Ref[facility] to [facility] at [facility] at [address] [place] [address] patient previously at her treatment there After checking [facility] and see no red flags prescribing oxycodone 5 mg tablets to be used 1 tablet every 4 hours as needed for incisional pain. Patient instructed to follow-up with the thoracic surgical apartment moving forward on a as needed basis. Numbness and tingling in right hand 05/19/2022 Overview (11/30/2024): Last Assessment & Plan: 46-year-old woman with signs, symptoms, and exam findings consistent possibly with thoracic outlet syndrome. I had a long discussion with her about thoracic outlet syndrome in general and its potential treatment. Typically, we start with 2 to 3 months of physical therapy directed towards thoracic outlet and if this does not make things better start to consider the possibility of a first rib resection as a more permanent treatment. She is already going to physical therapy for her elbow so we will contact that agency and ask them to add some physical therapy for thoracic outlet syndrome as well. All questions were answered and I will plan on seeing her back in the office in mid August after she has completed 2 months of physical therapy. Low back pain potentially associated with radicu lopathy 02/08/2022 Right lateral epicondylitis 10/10/2021 Resolved Problems Problem Noted Date Diagnosed Date Resolved Date Pain in right foot 12/15/2024 Capsulitis of metatarsophala ngeal (MTP) joint of right foot 12/15/2024 06/09/2025 Encounters Date Type Department Care Team Description 09/04/2025 1:15 PM EST Office Visit Orthopedic Surgery - [place] [address] [place] [address] [place] [address] Robert Palmer A, DPM Post-operative state (Primary Dx) 08/03/2025 2:30 PM EDT Office Visit Orthopedic [facility] [address] [phone] Robert Palmer A, DPM Sesamoiditis of right foot (Primary Dx); Right foot pain; Capsulitis of right foot 07/06/2025 1:15 PM EDT Office Visit [place] [address] [address] Robert Palmer A, DPM Post-operative state (Primary Dx) 06/22/2025 1:30 PM EDT Office Visit [facility] [address] [phone] Robert Palmer A, DPM Post-operative state (Primary Dx) 06/09/2025 10:30 AM EDT - 06/09/2025 12:15 PM EDT Surgery [facility] OR [address] [place] [phone] Robert Palmer A, DPM CHEILECTOMY RIGHT GREAT TOE [03359 (CPT )] 06/09/2025 10:01 AM EDT Anesthesia Event [facility] [place] [address] [place] [phone] Mike aCo MD 06/09/2025 9:01 AM EDT - 06/09/2025 1:15 PM EDT Hospital Encounter [facility] [place] [address] [place] [phone] Robert Palmer A, DPM Pain in right foot; Capsulitis of metatarsophalangeal (MTP) joint of right foot Discharge Disposition: Home or Self Care from Last 3 Months Surgical History Surgery Date Site/Laterality Comments ELBOW SURGERY 10/18/2012 Right PROCEDURE: HISTORICAL ELBOW SURGERY; COMMENT: LCL Reconstruction, Dr. Mcgraw CHOLECYSTECTOMY PROCEDURE: CT LAPAROSCOPY SURG CHOLECYSTECTOMY SPINE SURGERY TOE SURGERY COLECTOMY ILEOSTOMY CLOSURE Medical History Medical History Date Comments Hypercholesterolemia DX:Hypercho lesterolemia Diverticulosis Irritable bowel syndrome GERD (gastroesophageal reflux disease) Hiatal hernia Anxiety Depression Neuromuscular disorder ([facility]/HCC V24, CMS/HCC V28 ) left sciatica Arthritis Joint pain Social History Tobacco Use Types Packs/Day Years [...] on file Sexual Orientation Not on file Obstetrics History Last Filed Vital Signs Vital Sign Reading Time Taken Comments Blood Pressure 96/64 06/09/2025 12:00 PM EDT Pulse 58 06/09/2025 12:00 PM EDT Temperature 36.2 C (97.2 F) 06/09/2025 11:33 AM EDT Respiratory Rate 16 06/09/2025 9:22 AM EDT Oxygen Saturation 97% 06/09/2025 12:00 PM EDT Inhaled Oxygen Concentration - - Weight 72.6 kg (160 lb) 06/09/2025 9:30 AM EDT Height 157.5 cm (5' 2.01 ) 06/09/2025 9:30 AM ED T Body Mass Index 29.26 06/09/2025 9:30 AM EDT Plan of Treatment Health Maintenance Due Date Last Done Comments Breast Cancer Screening 1977 Hepatitis B Vaccines (1 of 3 - 19+ 3-dose series) 1996 Cervical Cancer Screening: P ap Smear 1998 DTaP,Tdap,and Td Vaccines (2 - Td or Tdap) 10/01/2021 10/01/2011 Cholesterol Screening (Lipid Panel) 09/07/2022 HIV Screening 09/07/2022 Hepatitis C Screening 09/07/2022 Medicare Annual Wellness Visit 09/07/2022 Social Influencers of Health Screening 09/07/2022 Depression Screening 10/05/2024 Colorectal Cancer Screening: Stool Based Tests (FOBT/FIT) 03/09/2025 03/09/2024 COVID-19 Vaccine (3 - 2024-2 6 season) 2025 10/16/2021, 12/20/2020 Influenza Vaccine (#1) 2025 0, 10/12/2018 RSV Immunization Adult Patients (1 - 1-dose 75+ series) 2052 HIB Vaccines Aged Out No longer eligi ble based on patient's age to complete this topic HPV Vaccines Aged Out No longer eligi ble based on patient's age to complete this topic Hepatitis A Vaccines Aged Out No long er eligible based on patient's age to complete this topic IPV Vaccines Aged Out No longer eligi ble based on patient's age to complete this topic MMR Vaccines Aged Out No longer eligi ble based on patient's age to complete this topic Meningococcal ACWY Vaccine Aged Out N o longer eligible based on patient's age to complete this topic Meningococcal B Vaccine Aged Out No l onger eligible based on patient's age to complete this topic Pneumococcal Vaccine: Pediatrics (0 to 5 Years) and At-Risk Patients (6 to 49 Years) Aged Out No longer eligible b ased on patient's age to complete this topic RSV Immunization Patients Under 20 months Aged Out No longer eligible b ased on patient's age to complete this topic Varicella Vaccines Aged Out No longer eligible based on patient's age to complete this topic Medical Devices Implanted Type Area Timber Skidder Device Identifier Shelf Expiration Date Model / Serial / Lot Joints Joints Right: First Toe Toe Flex Hinge W/Grommet Sz 1 [employer] - Sna - [id number] Implanted:Qty: 1 on 06/09/2025 by Robert Palmer DPM at [facility] Joints Right: First Toe [employer] 04/21/2026 [id number] / NA / [id number] Procedures Procedure Name Priority Date/Time Associated Diagnosis Comments XR FOOT 3+ VIEWS RIGHT Routine 08/03/2025 3:25 PM EDT Post-operative state INJECTION TENDON OR LIGAMENT Routine 08/03/2025 2:30 PM EDT Capsulitis of right foot XR FOOT 3+ VIEWS RIGHT Routine 06/22/2025 1:42 PM EDT Post-operative state XR FOOT 2 VIEWS RIGHT Routine 06/09/2025 12:09 PM EDT OXYGEN THERAPY, ADULT Routine 06/09/2025 11:41 AM EDT TISSUE EXAM Routine 06/09/2025 11:04 AM EDT Pain in right foot Capsulitis of metatarsophalangeal (MTP) joint of right foot CT HALLUX RIGIDUS LOURDES W CHEILECTOMY DEBR & CAPSULAR RLS 1ST MPJ W IMPLANT 06/09/2025 9:58 AM EDT Pain in right foot Capsulitis of metatarsophalangeal (MTP) joint of right foot Case Notes MINI C-ARM, CONMED, [employer] Carver implant POC PREGANCY, URINE NO CHARGE SCREENING MANUALLY RESULTED Routine 06/09/2025 9:31 AM EDT from Last 3 Months Results * XR Foot 3+ Views Right (08/03/2025 3:25 PM EDT) Only the most recent of2 resultswithin the time period is included. Anatomical Region Laterality Modality Lower Extremities, Foot Right Computed Radiography Narrative 08/14/2025 9:28 PM EST Right foot 3 views nonweightbearing: Rectus alignment of the great toe on the forefoot with Carver implant in proper alignment. Some sclerosis through the sesamoid complex secondary to previous fusion us Robert Palmer DPM IMG XR PROCEDURES Final Res ult * Injection tendon or ligament (08/03/2025 2:30 PM EDT) Narrative Robert Palmer DPM - 08/03/2025 2:30 PM EDT Robert Palmer DPM 08/03/2025 6:11 PM Injection tendon or ligament Indications: pain Details: 25 G needle Medications: 0.5 mL lidocaine (PF) 1 %; 40 mg triamcinolone acetonide 40 mg/mL Informed Consent: Laterality: Right us Robert Palmer DPM IN CLINIC/BEDSIDE ORDERABLE S Final Result * XR Foot 2 Views Right (06/09/2025 12:09 PM EDT) Anatomical Region Laterality Modality Lower Extremities, Foot Right Radiogra [facility] 06/09/2025 12:1 2 PM EDT Impressions 06/09/2025 12:13 PM EDT Postoperative changes in the right first toe as above. -------- FINAL REPORT -------- Dictated By: Khanh Rosa Dictated Date: 06/09/2025 12:12 ET Assigned Physician: Khanh Rosa Reviewed and Electronically Signed By: Khanh Rosa Signed Date: 06/09/2025 12:13 ET Workstation ID: [id number] Transcribed By: Self Edit Transcribed Date: 06/09/2025 12:12 ET Narrative 06/09/2025 12:13 PM EDT HISTORY: The patient is a 49-year-old female undergoing right foot surgery. FINDINGS: AP and lateral radiographs of the right foot, without previous for comparison, are submitted. The study demonstrates the presence of a first metatarsal-phalangeal joint prosthesis. Cylindrical lucencies in the first metatarsal and first proximal phalanx suggest previously present surgical hardware which has since been removed. No fracture or dislocation is seen. Procedure Note Khanh Rosa MD - 06/09/2025 HISTORY: The patient is a 49-year-old female undergoing right footsurgery. FINDINGS: AP and lateral radiographs of the right foot, without previousfor comparison, are submitted. The study demonstrates the presence of afirst metatarsal-phalangeal joint prosthesis. Cylindrical lucencies inthe first metatarsal and first proximal phalanx suggest previously presentsurgical hardware which has since been removed. No fracture ordislocation is seen. IMPRESSION: Postoperative changes in the right first toe as above. -------- FINAL REPORT -------- Dictated By: Khanh Rosa Dictated Date: 06/09/2025 12:12 ET Assigned Physician: Khanh Rosa Reviewed and Electronically Signed By: Khanh Rosa Signed Date: 06/09/2025 12:13 ET Workstation ID: [id number] Transcribed By: Self Edit Transcribed Date: 06/09/2025 12:12 ET Robert Palmer DPM IMG XR PROCEDURES Final Res ult * Tissue exam (06/09/2025 11:04 AM EDT) Final Diagnosis Right, first metatarsal head bone-cheilectomy: -BONE AND CARTILAGE WITH DEGENERATIVE CHANGES 06/13/2025 11:01 AM EDT [facility] at 1101 EDT Gross Description A. Foot, Right, first metatarsal head bone: Labeled first met foot R . Received in formalin is a 3.5 x 2.2 x 0.8 cm aggregate of irregular yellow to red indurated portions of bone with minimal attached soft, murphy tissue. Diesel Engineer sections are submitted in one cassette, multiple pieces, following decalcification. TS 06/13/2025 11:01 AM EDT [facility] Disclaimer Unless otherwise specified, all tissue is 10% NB formalin fixed and paraffin embedded. 06/13/2025 11:01 AM EDT [facility] Bone Structure of right foot / Unknown 06/09/2025 11:04 AM EDT 06/09/2025 1:06 PM EDT Robert Palmer DPM LAB PATHOLOGY ORDERABLES Fi nal Result [facility] [address] [place] [address], * POC , urine NO CHARGE screening manually resulted (06/09/2025 9:31 AM EDT) HCG, Ur POC Negative Negative POC hCG Int QC Pass? Yes Yes Urine Urine specimen obtained by clean catch procedure / Unknown 06/09/2025 9:31 AM EDT Robert Palmer DPM POINT OF CARE TEST ENTER/ED IT ORDERABLES Final Result from Last 3 Months Insurance MEDICAID - [place] MEDICARE MEDICARE Advance Directives * Full Code - Default (Latest Code Status on File) Date Activated Date Inactivated Comments 06/09/2025 9:37 AM 06/09/2025 3:20 PM This is order is used when code status has not been discussed with the patient, or code status is otherwise unknown/unconfirmed To update the patient's code status, place a code status order. Do not modify or discontinue any currently active code status orders. Care Teams Lending Manager Relationship Specialty Start Date End Date Tre Zhao MD [address] [facility] [place] [phone] PCP - General Internal Medicine 06/19/21
--- OUTSIDE RECORDS SUMMARY | 2025-09-04 14:09 | XMS_ITS | Encounter Summary ---
Author Organization [facility] Address [address] [place] [address] Phone Care Team Providers Care Cotton Baler Name Role Phone Tre Zhao MD Primary Care Provider [phone] Encounter Details Date Type Department Care Team ([facility] st Contact Info) Description 04/26/2024 Procedure Pass OR Admitting Dept - Virtual Department [address] [place] [address] Social History Tobacco Use Types Packs/Day Years Used Date Smoking Tobacco: Former Passive Smoke Exposure: Never Smokeless Tobacco: Never Comments:Former smoker quit 15 yrs ago ~1ppd Alcohol Use Standard Drinks/Week Comments Never 0 (1 standard drink = 0.6 oz pur e alcohol) Home Health Assessment: Transportation Answer Date Recorded Lack of Transportation (Medical) No 04/12/2024 Lack of Transportation (Non-Medical) No 04/12/2024 Patient Unable or Declines to Respond No 04/12/2024 Education Answer Date Recorded Are you interested [...] today? I have bridget de la cruz 03/25/2024 How many times have you move [...] with a working camera? Yes 03/25/2024 Comments No Sex and Gender Information Value Date Recorded Sex Assigned at Female 03/07/2024 8:13 AM EDT Legal Sex Female 9:26 PM EDT Gender Identity Female 03/07/2024 8:13 AM EDT Sexual Orientation Straight 03/07/2024 8: 15 AM EDT documented as of this encounter Plan of Treatment Upcoming Encounters Date Type Department Care Team (Late st Contact Info) Description 11/18/2025 10:15 AM EST Appointment [address] [address] Vipul Arreaga MD [address] [place] [address] [email or web address] documented as of this encounter Visit Diagnoses Not on filedocumented in this encounter Additional Health Concerns Infection Onset Date Last Indicated Resolved Time CoV-Risk 11/10/2024 11/10/2024 11/21/2024 1:22 AM EST RSV 11/10/2024 11/10/2024 11/17/2024 1:24 AM EST documented as of this encounter Care Teams Cotton Baler Relationship Specialty Start Date End Date Tre Zhao MD [address] [place] [phone] PCP - General Internal Medicine 12/22/21 documented as of this encounter Additional Source Comments The information contained in this document represents components of the legal health record. It is not the complete legal health record.[facility]
--- OUTSIDE RECORDS SUMMARY | 2025-09-04 14:09 | XMS_ITS | Encounter Summary ---
Author Organization [facility] Address [address] [place] [address] Phone Care Team Providers Care Pelt Dropper Name Role Phone Tre Zhao MD Primary Care Provider [phone] Encounter Details Date Type Department Care Team (Late st Contact Info) Description 03/07/2024 Procedure Pass [facility], Ct Scan - [facility] [address] [place] [address] Social History Tobacco Use Types Packs/Day Years [...] Date of Assessment Author No Risk Indicated 03/07/2024 8:13 AM EDT Jacquelin Goodwin RN * [place] Suicide Severity Rating Scale (Screener/Recent Self-Report) Question Answer Date of Assessment Author 1. Wish to be (Past 1 Month) No 024 8:13 AM EDT Jacquelin Adamson, MADELIN 2. Non-Specific Active Suici charly Thoughts (Past 1 Month) No 03/07/2024 8:13 AM EDT Jacquelin Adamson, MADELIN 6. Suicidal Behavior (Lifetime) No 8:13 AM EDT Jacquelin Adamson RN documented as of this encounter Plan of Treatment Upcoming Encounters Date Type Department Care Team (Late st Contact Info) Description 11/18/2025 10:15 AM EST Appointment [facility], Bone [facility] [address] [place] [address] Vipul Arreaga MD [address] [place] [address] [email or web address] documented as of this encounter Visit Diagnoses Not on filedocumented in this encounter Additional Health Concerns Infection Onset Date Last Indicated Resolved Time CoV-Risk 11/10/2024 11/10/2024 11/21/2024 1:22 AM EST RSV 11/10/2024 11/10/2024 11/17/2024 1:24 AM EST documented as of this encounter Care Teams Pelt Dropper Relationship Specialty Start Date End Date Tre Zhao MD [address] [place] [phone] PCP - General Internal Medicine 12/22/21 documented as of this encounter Additional Source Comments The information contained in this document represents components of the legal health record. It is not the complete legal health record.[facility]
--- OUTSIDE RECORDS SUMMARY | 2025-09-04 14:09 | XMS_ITS | Encounter Summary ---
Author Organization [facility] Address [address] [place] [address] Phone Care Team Providers Care Fabrication Department Supervisor Name Role Phone Tre Zhao MD Primary Care Provider [phone] Encounter Details Date Type Department Care Team ([facility] st Contact Info) Description 06/23/2024 Procedure Pass [facility] Endoscopy Admitting Dept Virtual Department [address] [place] [address] Social History Tobacco Use Types Packs/Day Years [...] Info) Description 11/18/2025 10:15 AM EST Appointment [address] [address] Vipul Arreaga MD [address] [place] [phone] [email or web address] documented as of this encounter Visit Diagnoses Not on filedocumented in this encounter Additional Health Concerns Infection Onset Date Last Indicated Resolved Time CoV-Risk 11/10/2024 11/10/2024 11/21/2024 1:22 AM EST RSV 11/10/2024 11/10/2024 11/17/2024 1:24 AM EST documented as of this encounter Care Teams Fabrication Department Supervisor Relationship Specialty Start Date End Date Tre Zhao MD [address] [place] [address] [address] [place] [address] PCP - General Internal Medicine 12/22/21 documented as of this encounter Additional Source Comments The information contained in this document represents components of the legal health record. It is not the complete legal health record.[facility]
--- OUTSIDE RECORDS SUMMARY | 2025-09-04 14:09 | XMS_ITS | Encounter Summary ---
Author Organization [facility] Address [address] [place] [address] Phone Care Team Providers Care Gas Plant Repairer Name Role Phone Tre Zhao MD Primary Care Provider [phone] Encounter Details Date Type Department Care Team (Late st Contact Info) Description 03/10/2024 Procedure Pass [facility], Ct Scan - [facility] [address] [place] [address] Social History Tobacco Use Types Packs/Day Years [...] Info) Description 11/18/2025 10:15 AM EST Appointment [facility], Bone Density [address] [address] Vipul Arreaga MD [address] [place] [phone] [email or web address] documented as of this encounter Visit Diagnoses Not on filedocumented in this encounter Additional Health Concerns Infection Onset Date Last Indicated Resolved Time CoV-Risk 11/10/2024 11/10/2024 11/21/2024 1:22 AM EST RSV 11/10/2024 11/10/2024 11/17/2024 1:24 AM EST documented as of this encounter Care Teams Gas Plant Repairer Relationship Specialty Start Date End Date Tre Zhao MD [address] [place] [phone] PCP - General Internal Medicine 12/22/21 documented as of this encounter Additional Source Comments The information contained in this document represents components of the legal health record. It is not the complete legal health record.[facility]
--- OUTSIDE RECORDS SUMMARY | 2025-09-04 14:09 | XMS_ITS | Encounter Summary ---
Author Organization [facility] Address [address] [place] [address] Phone Care Team Providers Care Flight Service Specialist Name Role Phone Tre Zhao MD Primary Care Provider [phone] Encounter Details Date Type Department Care Team ([facility] st Contact Info) Description 06/01/2024 Procedure Pass [facility] Endoscopy Admitting Dept Virtual Department 30 [place] [address] Social History Tobacco Use Types Packs/Day Years [...] Info) Description 11/18/2025 10:15 AM EST Appointment [address] [address] Vipul Arreaga MD 6 [place] [address] [email or web address] documented as of this encounter Visit Diagnoses Not on filedocumented in this encounter Additional Health Concerns Infection Onset Date Last Indicated Resolved Time CoV-Risk 11/10/2024 11/10/2024 11/21/2024 1:22 AM EST RSV 11/10/2024 11/10/2024 11/17/2024 1:24 AM EST documented as of this encounter Care Teams Flight Service Specialist Relationship Specialty Start Date End Date Tre Zhao MD [address] [place] [address] [address] [place] [address] PCP - General Internal Medicine 12/22/21 documented as of this encounter Additional Source Comments The information contained in this document represents components of the legal health record. It is not the complete legal health record.[facility]
--- OUTSIDE RECORDS SUMMARY | 2025-09-04 14:09 | XMS_ITS | Encounter Summary ---
Author Organization [facility] Address [address] [place] [address] Phone Care Team Providers Care Media Reporter Name Role Phone Tre Zhao MD Primary Care Provider Encounter Details Date Type Department Care Team ([facility] st Contact Info) Description 05/17/2024 Procedure Pass [facility] Endoscopy Admitting Dept Virtual Department 30 [place] [address] Social History Tobacco Use Types Packs/Day Years Used Date Smoking Tobacco: Former Cigarettes Passive Smoke Exposure: Never Smokeless Tobacco: Never [...] Description 11/18/2025 10:15 AM EST Appointment [address] [address] Vipul Arreaga MD [address] [place] [address] [email or web address] documented as of this encounter Visit Diagnoses Not on filedocumented in this encounter Additional Health Concerns Infection Onset Date Last Indicated Resolved Time CoV-Risk 11/10/2024 11/10/2024 11/21/2024 1:22 AM EST RSV 11/10/2024 11/10/2024 11/17/2024 1:24 AM EST documented as of this encounter Care Teams Media Reporter Relationship Specialty Start Date End Date Tre Zhao MD [address] [place] [address] [place] [address] PCP - General Internal Medicine 12/22/21 documented as of this encounter Additional Source Comments The information contained in this document represents components of the legal health record. It is not the complete legal health record.[facility]
--- OUTSIDE RECORDS SUMMARY | 2025-09-04 14:09 | XMS_ITS | Encounter Summary ---
Author Organization [facility] Address [address] [place] [address] Phone Care Team Providers Care Dentures Lab Technician Name Role Phone Tre Zhao MD Primary Care Provider [phone] Encounter Details Date Type Department Care Team (Latest Contact Info) Description 11/05/2023 Transcribe Orders [facility] Jennifer [address] [facility] 2nd [place] [address] Jacquelin Raymundo PA-C [address], [address] [place] [address] [email or web address] Gastroesophageal reflux disease, unspecified whether esophagitis present (Primary Dx); Rectal bleeding Social History Tobacco Use Types Packs/Day Years Used Date Smoking Tobacco: Former Passive Smoke Exposure: Never Smokeless Tobacco: Never Alcohol Use Standard Drinks/Week Comments Never 0 (1 standard drink = 0.6 oz pur e alcohol) Education Answer Date Recorded Are you interested in more education? Not on rajeev e 01/30/2023 Are you concerned about learning? Not on file 01/30/2023 No 01/30/2023 No 01/30/2023 Digital Access Answer Date Recorded No 03/02/2023 No 03/02/2023 Reliable internet access at home? Not on file 03/02/2023 Device with a working camera? Not on file Comments Unknown Sex and Gender Information Value Date Recorded Sex Assigned at Female 03/07/2024 8:13 AM EDT Legal Sex Female 9:26 PM EDT Gender Identity Female 03/07/2024 8:13 AM EDT Sexual Orientation Straight 03/07/2024 8: 15 AM EDT documented as of this encounter Plan of Treatment Upcoming Encounters Date Type Department Care Team (Late st Contact Info) Description 11/18/2025 10:15 AM EST Appointment [facility], Bone Density - [address] [address] Vipul Arreaga MD [address] [place] [address] [email or web address] documented as of this encounter Results * Ferritin (11/05/2023 11:51 AM EST) FERRITIN 51 13 - 150 ug/L [facility] Blood 11/05/2023 11:5 1 AM EST 11/05/2023 11:58 AM EST us Jacquelin Raymundo PA-C LAB BLOOD BKR ORDERABLES Final Result [address] [address] * TSH (11/05/2023 11:51 AM EST) TSH 0.83 0.27 - 4.20 uIU/mL [facility] Blood 11/05/2023 11:5 1 AM EST 11/05/2023 11:58 AM EST us Jacquelin Raymundo PA-C LAB BLOOD BKR ORDERABLES Final Result [address] [address] * Iron and iron binding capacity (11/05/2023 11:51 AM EST) IRON 59 30 - 160 ug/dL [facility] IRON BINDING CAPACITY 326 228 - 428 ug/dL [facility] TRANSFERRIN SATURAT. 18 15 - 50 % [facility] Blood 11/05/2023 11:5 1 AM EST 11/05/2023 11:58 AM EST us Jacquelin Raymundo PA-C LAB BLOOD BKR ORDERABLES Final Result Performing Organization Address City/[facility]/ZIP Co de Phone Number [address] [address] * Lipase (11/05/2023 11:51 AM EST) LIPASE 49 16 - 63 U/L [facility] Blood 11/05/2023 11:5 1 AM EST 11/05/2023 11:58 AM EST us Jacquelin Raymundo PA-C LAB BLOOD BKR ORDERABLES Final Result Performing Organization Address [facility] Co de Phone Number [address] [address] * (ABNORMAL) C-Reactive Protein (11/05/2023 11:51 AM EST) C REACTIVE PROTEIN 5.1(H) 0.0 - 4.0 mg/L [facility] Blood 11/05/2023 11:5 1 AM EST 11/05/2023 11:58 AM EST us Jacquelin Raymundo PA-C LAB BLOOD BKR ORDERABLES Final Result Performing Organization Address City/[facility]/ZIP Co de Phone Number [address] [address] * Immunoglobulin A (11/05/2023 11:51 AM EST) IgA 382 70 - 400 mg/dL [facility] Blood 11/05/2023 11:5 1 AM EST 11/05/2023 11:58 AM EST us Jacquelin Breanne PA-C LAB BLOOD BKR ORDERABLES Final Result [facility] [address] [place] [address] * Tissue transglutaminase IgA (11/05/2023 11:51 AM EST) TTG IGA ANTIBODY <1.2 <4.0 (Negative) U/mL [facility] Blood 11/05/2023 11:5 1 AM EST 11/05/2023 11:57 AM EST us Jacquelin Raymundo PA-C LAB BLOOD BKR ORDERABLES Final Result [facility] [address] [place] [address] documented in this encounter Visit Diagnoses Diagnosis Gastroesophageal reflux disease, unspecified whether esophagitis present- Primary Rectal bleeding Hemorrhage of rectum and anus documented in this encounter Additional Health Concerns Infection Onset Date Last Indicated Resolved Time CoV-Risk 11/10/2024 11/10/2024 11/21/2024 1:22 AM EST RSV 11/10/2024 11/10/2024 11/17/2024 1:24 AM EST documented as of this encounter Care Teams Dentures Lab Technician Relationship Specialty Start Date End Date Tre Zhao MD [address] [place] [address] PCP - General Internal Medicine 12/22/21 documented as of this encounter Additional Source Comments The information contained in this document represents components of the legal health record. It is not the complete legal health record.[facility]
--- OUTSIDE RECORDS SUMMARY | 2025-09-04 14:10 | XMS_ITS | Encounter Summary ---
Author Organization [facility] Address [address] [place] [address] Phone Care Team Providers Care Sewage Disposal Engineer Name Role Phone Tre Zhao MD Primary Care Provider [phone] Encounter Details Date Type Department Care Team (Late st Contact Info) Description 05/29/2025 Procedure Pass [facility], [facility] 30 [place] [address] Social History Tobacco Use Types Packs/Day Years [...] Info) Description 11/18/2025 10:15 AM EST Appointment [facility], Bone [facility] 30 [place] [address] Vipul rAreaga MD [address] [place] [address] documented as of this encounter Visit Diagnoses Not on filedocumented in this encounter Care Teams Sewage Disposal Engineer Relationship Specialty Start Date End Date Tre Zhao MD [address] [place] [address] PCP - General Internal Medicine 12/22/21 documented as of this encounter Additional Source Comments The information contained in this document represents components of the legal health record. It is not the complete legal health record.[facility]
--- OUTSIDE RECORDS SUMMARY | 2025-09-04 14:10 | XMS_ITS | Encounter Summary ---
Author Organization [facility] Address [email or web address] [address] Phone Care Team Providers Care Pearl Glue Drier Name Role Phone Tre Zhao MD Primary Care Provider [phone] Reason for Referral * Occupational Therapy (Routine) - Closed Specialty Diagnoses / Procedures Referred By Ernesto farrell Referred To Contact Occupational Therapy Diagnoses Encounter for rehabilitation Anjelica Mcgraw MD Phone: tel: fax: [email or web address] [facility] 30 [place] [address] Phone: tel: Referral ID Status Reason Start Date Expiration Date Visits Re quested Visits Authorized [id number] Closed 06/30/2022 06/30/2023 1 1 Encounter Details Date Type Department Care Team (Latest Contact Info) Description 06/30/2022 Transcribe Orders [facility] 8 [place] [address] Anjelica Mcgraw MD [address] [place] [address] [address] [place] [address] [email or web address] Encounter for rehabilitation (Primary Dx) Social History [...] Info) Description 11/18/2025 10:15 AM EST Appointment [facility], [facility] 30 [place] [address] Vipul Arreaga MD [address] [place] [address] [email or web address] Scheduled Referrals Name Type Priority Associated Diagnoses Orde r Schedule Ambulatory referral to [facility] Occupational Therapy Outpatient Referral Routine Encounter for rehabilitation Ordered: 06/30/2022 documented as of this encounter Visit Diagnoses Diagnosis Encounter for rehabilitation- Primary documented in this encounter Additional Health Concerns Infection Onset Date Last Indicated Resolved Time CoV-Risk 11/10/2024 11/10/2024 11/21/2024 1:22 AM EST RSV 11/10/2024 11/10/2024 11/17/2024 1:24 AM EST documented as of this encounter Care Teams Pearl Glue Drier Relationship Specialty Start Date End Date Tre Zhao MD [address] [place] [address] PCP - General Internal Medicine 12/22/21 documented as of this encounter Additional Source Comments The information contained in this document represents components of the legal health record. It is not the complete legal health record.[facility]
--- OUTSIDE RECORDS SUMMARY | 2025-09-04 14:10 | XMS_ITS | Encounter Summary ---
Author Organization [facility] Address [address] [place] [address] Phone Care Team Providers Care Cement Mason [employer] Name Role Phone Tre Zhao MD Primary Care Provider [phone] Encounter Details Date Type Department Care Team (Late st Contact Info) Description 05/24/2025 Procedure Pass [facility], [facility] [address] [place] [address] Social History Tobacco Use Types Packs/Day Years [...] Info) Description 11/18/2025 10:15 AM EST Appointment [facility], Bone [facility] 30 [place] [address] Vipul Arreaga MD [address] [place] [address] documented as of this encounter Visit Diagnoses Not on filedocumented in this encounter Care Teams [employer] Relationship Specialty Start Date End Date Tre Zhao MD [address] [place] [address] PCP - General Internal Medicine 12/22/21 documented as of this encounter Additional Source Comments The information contained in this document represents components of the legal health record. It is not the complete legal health record.[facility]
--- OUTSIDE RECORDS SUMMARY | 2025-09-04 14:10 | XMS_ITS | Encounter Summary ---
Author Organization [facility] Address [address] [place] [address] Phone Care Team Providers Care Flow Worker Name Role Phone Tre Zhao MD Primary Care Provider Encounter Details Date Type Department Care Team (Late st Contact Info) Description 05/18/2025 Procedure Pass [facility], [facility] Scan - [facility] [address] [place] [address] Social History Tobacco Use Types Packs/Day Years [...] 8:13 AM EDT Sexual Orientation Straight 03/07/2024 8 :15 AM EDT documented as of this encounter Functional Status * Calculated C-SSRS Risk Score (Lifetime/Recent) Answer Date of Assessment Author No Risk Indicated 05/18/2025 4:54 PM EDT Yen Guerrier RN * [place] Suicide Severity Rating Scale (Screener/Recent Self-Report) Question Answer Date of Assessment Author 1. Wish to be (Past 1 Month) No 025 4:54 PM EDT Yen Guerrier RN 2. Non-Specific Active Suici charly Thoughts (Past 1 Month) No 05/18/2025 4:54 PM EDT Yen Guerrier, RN 6. Suicidal Behavior (Lifetime) No 4:54 PM EDT Yen Guerrier RN documented as of this encounter Plan of Treatment Upcoming Encounters Date Type Department Care Team (Late st Contact Info) Description 11/18/2025 10:15 AM EST Appointment [facility], Bone Density - [facility] 30 [place] [address] Vipul Arreaga MD [address] [place] [address] [email or web address] documented as of this encounter Visit Diagnoses Not on filedocumented in this encounter Care Teams Flow Worker Relationship Specialty Start Date End Date Tre Zhao MD [address] [place] [address] PCP - General Internal Medicine 12/22/21 documented as of this encounter Additional Source Comments The information contained in this document represents components of the legal health record. It is not the complete legal health record.[facility]
--- OUTSIDE RECORDS SUMMARY | 2025-09-04 14:10 | XMS_ITS | Encounter Summary ---
Author Organization [facility] Address [address] [place] [address] Phone Care Team Providers Care Lead Oracle Developer Name Role Phone Tre Zhao MD Primary Care Provider [phone] Encounter Details Date Type Department Care Team (Late st Contact Info) Description 03/08/2025 Procedure Pass [facility], [facility] 30 [place] [address] Social History Tobacco Use Types Packs/Day Years [...] computer) with a working camera? Yes 03/25/2024 Intimate Partner Violence Answer Date R ecorded Are you denied basic needs s uch as food, clothing, or medical care? No 11/21/2024 In the past 12 months have y ou been in a relationship with a person who hurts, threatens, or tries to control you? No 11/21/2024 Are you denied basic needs s uch as food, clothing, or medical care? No 11/21/2024 In the past 12 months have y ou been in a relationship with a person who hurts, threatens, or tries to control you? No 11/21/2024 Comments No Sex and Gender Information Value Date Recorded Sex Assigned at Female 03/07/2024 8:13 AM EDT Legal Sex Female 9:26 PM EDT Gender Identity Female 03/07/2024 8:13 AM EDT Sexual Orientation Straight 03/07/2024 8: 15 AM EDT documented as of this encounter Plan of Treatment Upcoming Encounters Date Type Department Care Team (Late st Contact Info) Description 11/18/2025 10:15 AM EST Appointment [facility], Bone [facility] 30 [place] [address] Vipul Arreaga MD [address] [place] [address] documented as of this encounter Visit Diagnoses Not on filedocumented in this encounter Care Teams Lead Oracle Developer Relationship Specialty Start Date End Date Tre Zhao MD [address] [place] [address] PCP - General Internal Medicine 12/22/21 documented as of this encounter Additional Source Comments The information contained in this document represents components of the legal health record. It is not the complete legal health record.[facility]
--- OUTSIDE RECORDS SUMMARY | 2025-09-04 14:10 | XMS_ITS | Encounter Summary ---
Author Organization [facility] Address [address] [place] [address] Phone Care Team Providers Care Submarine Advisory Team Watch Officer Name Role Phone Tre Zhao MD Primary Care Provider [phone] Encounter Details Date Type Department Care Team ([facility] st Contact Info) Description 09/12/2024 Procedure Pass [place] Admitting Dept - Virtual Department [address] [place] [address] Social History Tobacco Use Types Packs/Day Years [...] as food, clothing, or medical care? No 09/12/2024 In the past 12 months have y ou been in a relationship with a person who hurts, threatens, or tries to control you? No 09/12/2024 Are you denied basic needs s uch as food, clothing, or medical care? No 09/12/2024 In the past 12 months have y ou been in a relationship with a person who hurts, threatens, or tries to control you? No 09/12/2024 Comments No Sex and Gender Information Value Date Recorded Sex Assigned at Female 03/07/2024 8:13 AM EDT Legal Sex Female 9:26 PM EDT Gender Identity Female 03/07/2024 8:13 AM EDT Sexual Orientation Straight 03/07/2024 8: 15 AM EDT documented as of this encounter Functional Status * Calculated C-SSRS Risk Score (Lifetime/Recent) Answer Date of Assessment Author No Risk Indicated 09/12/2024 1:00 PM Arianna Gomez RN * [place] Suicide Severity Rating Scale (Screener/Recent Self-Report) Question Answer Date of Assessment Author 1. Wish to be (Past 1 Month) No 024 1:00 PM Arianna Gomez, MADELIN 2. Non-Specific Active Suici charly Thoughts (Past 1 Month) No 09/12/2024 1:00 PM EST Armen Jones RN 6. Suicidal Behavior (Lifetime) No 1:00 PM EST Arianna Jones RN documented as of this encounter Plan of Treatment Upcoming Encounters Date Type Department Care Team (Late st Contact Info) Description 11/18/2025 10:15 AM EST Appointment [facility], Bone Density - [facility] [address] [place] [address] Vipul Arreaga MD [address] [place] [address] [email or web address] documented as of this encounter Visit Diagnoses Not on filedocumented in this encounter Additional Health Concerns Infection Onset Date Last Indicated Resolved Time CoV-Risk 11/10/2024 11/10/2024 11/21/2024 1:22 AM EST RSV 11/10/2024 11/10/2024 11/17/2024 1:24 AM EST documented as of this encounter Care Teams Submarine Advisory Team Watch Officer Relationship Specialty Start Date End Date Tre Zhao MD [address] [place] [address] PCP - General Internal Medicine 12/22/21 documented as of this encounter Additional Source Comments The information contained in this document represents components of the legal health record. It is not the complete legal health record.[facility]
--- OUTSIDE RECORDS SUMMARY | 2025-09-04 14:10 | XMS_ITS | Encounter Summary ---
Author Organization [facility] Address [address] [place] [address] Phone Care Team Providers Care Auto Body Builder Apprentice Name Role Phone Tre Zhao MD Primary Care Provider [phone] Reason for Referral * MRI/CAT Scan - Closed Specialty Diagnoses / Procedures Referred By Contac t Referred To Contact Radiology Diagnoses Intervertebral disc disorders with radiculopathy, lumbar region Procedures MRI Lumbar Spine Vipul Arreaga MD [address] [place] [address] Phone: tel: fax: [email or web address] Referral ID Status Reason Start Date Expiration Date Visits Re quested Visits Authorized [id number] Closed 05/29/2025 05/29/2026 1 1 * MRI/CAT Scan - Closed Specialty Diagnoses / Procedures Referred By Contac t Referred To Contact Radiology Diagnoses Wedge compression fracture of T11-T12 vertebra, initial encounter for closed fracture Procedures MRI Thoracic Spine Vipul Arreaga MD [address] [place] [phone] Phone: tel: fax: [email or web address] Referral ID Status Reason Start Date Expiration Date Visits Re quested Visits Authorized [id number] Closed 05/24/2025 05/24/2026 1 1 Encounter Details Date Type Department Care Team (Latest Contact Info) Description 05/24/2025 Transcribe Orders Virtual Department 30 [place] [address] Vipul Arreaga MD [address] [place] [phone] [email or web address] Wedge compression fracture of T11-T12 vertebra, initial encounter for closed fracture (Primary Dx); Intervertebral disc disorders with radiculopathy, lumbar region Social History Tobacco Use Types Packs/Day Years Used Date Smoking Tobacco: Former Cigarettes Q uit: 2009 Passive Smoke Exposure: Never Smokeless Tobacco: Never [...] Info) Description 11/18/2025 10:15 AM EST Appointment [facility], Bone Density - [address] [address] Vipul Arreaga MD [address] [place] [phone] [email or web address] documented as of this encounter Results * MRI LUMBAR SPINE (NEURO) WITHOUT [...] Vertebrae: Mild anterior wedging deformity of the [id number] body, with decreased T1 signal increased and [...] mild anterior wedge compression deformity of the G01qnaeqpbeu body, with less than 25% loss of vertebral body height and nosignificant retropulsion. 2. Mild lumbar spondylosis, without high-grade canal or foraminalnarrowing. Vipul GUERRA MR XSPECIALTY Final Result * MRI THORACIC [...] Vertebrae: Mild anterior wedging deformity of the [id number] body, with decreased T1 signal increased and [...] mild anterior wedge compression deformity of the E20knfrwjgta body, with less than 25% loss of vertebral body height and nosignificant retropulsion. 2. Mild lumbar spondylosis, without high-grade canal or foraminalnarrowing. Vipul Arreaga MD IMG MR XSPECIALTY Final Result documented in this encounter Visit Diagnoses Diagnosis Wedge compression fracture of T11-T12 vertebra, initial encounter for closed fracture- Primary Intervertebral disc disorders with radiculopathy, lumbar region Wedge compression fracture of T11-T12 vertebra, initial encounter for closed fracture Intervertebral disc disorders with radiculopathy, lumbar region documented in this encounter Care Teams Auto Body Builder Apprentice Relationship Specialty Start Date End Date Tre Zhao MD [address] [place] [address] PCP - General Internal Medicine 12/22/21 documented as of this encounter Additional Source Comments The information contained in this document represents components of the legal health record. It is not the complete legal health record.[facility]
--- OUTSIDE RECORDS SUMMARY | 2025-09-04 14:10 | XMS_ITS | Encounter Summary ---
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 Name Role Phone Tre Zhao MD Primary Care Provider [phone] Reason for Referral * MRI/CAT Scan - Closed Specialty Diagnoses / Procedures Referred By Contac t Referred To Contact Radiology Diagnoses Intervertebral disc disorders with radiculopathy, lumbar region Procedures MRI Lumbar Spine Vipul Arreaga MD [address] [place] [phone] Phone: tel: fax: [email or web address] Referral ID Status Reason Start Date Expiration Date Visits Re quested Visits Authorized [id number] Closed 03/08/2025 03/08/2026 1 1 Encounter Details Date Type Department Care Team (Latest Contact Info) Description 03/08/2025 Transcribe Orders Virtual Department [address] [place] [address] Vipul Arreaga MD [address] [place] [phone] [email or web address] Intervertebral disc disorders with radiculopathy, lumbar region (Primary Dx) Social History Tobacco Use Types [...] Info) Description 11/18/2025 10:15 AM EST Appointment [facility], [facility] [address] [place] [address] Vipul Arreaga MD [address] [place] [phone] [email or web address] documented as of this encounter Results * MRI LUMBAR SPINE (NEURO) WITHOUT CONTRAST (04/04/2025 10:59 AM EDT) Anatomical Region Laterality Modality L-spine Magnetic Resonan ce 04/06/2025 9:46 AM EDT Impressions 04/06/2025 9:53 AM EDT Mild to moderate lower lumbar spondylosis, without high-grade canal or foraminal narrowing. Narrative 04/06/2025 9:53 AM EDT MRI LUMBAR SPINE (NEURO) WITHOUT CONTRAST Referring clinician's provided indication for this examination in Epic: Outside Radiology Order; disc disorder TECHNIQUE: MRI LUMBAR SPINE (NEURO) WITHOUT CONTRAST Multi-sequence, multi-planar MRI of the lumbar spine was performed without intravenous contrast. COMPARISON: None. FINDINGS: LUMBAR SPINE: Alignment and Vertebrae: Normal alignment. No acute compression fracture. Marrow: No bone marrow replacing lesion. Discs and Endplates: Moderate disc height loss at L5-S1 with surrounding Modic 1 changes and endplate osteophytosis. Conus: Normal. Soft Tissues: Normal. No prevertebral edema. Other Findings: None. Findings by level: T12-L1: Negative L1-L2: Mild diffuse disc bulge, without significant canal or foraminal narrowing. L2-L3: Mild diffuse disc bulge, without significant canal or foraminal narrowing. L3-L4: Mild diffuse disc bulge and mild bilateral facet arthropathy, without significant canal or foraminal narrowing. L4-L5: Moderate bilateral facet arthropathy. Mild diffuse disc bulge. No significant canal or foraminal narrowing. L5-S1: Moderate bilateral facet nephropathy. Diffuse disc bulge. Mild bilateral foraminal narrowing. Procedure Note Marbin Sargent MD - 04/06/2025 MRI LUMBAR SPINE (NEURO) WITHOUT CONTRAST Referring clinician's provided indication for this examination in Epic:Outside Radiology Order; disc disorder TECHNIQUE: MRI LUMBAR SPINE (NEURO) WITHOUT CONTRAST Multi-sequence, multi-planar MRI of the lumbar spine was performed withoutintravenous contrast. COMPARISON: None. FINDINGS: LUMBAR SPINE: Alignment and Vertebrae: Normal alignment. No acute compressionfracture. Marrow: No bone marrow replacing lesion. Discs and Endplates: Moderate disc height loss at L5-S1 with surroundingModic 1 changes and endplate osteophytosis. Conus: Normal. Soft Tissues: Normal. No prevertebral edema. Other Findings: None. Findings by level: T12-L1: Negative L1-L2: Mild diffuse disc bulge, without significant canal or foraminalnarrowing. L2-L3: Mild diffuse disc bulge, without significant canal or foraminalnarrowing. L3-L4: Mild diffuse disc bulge and mild bilateral facet arthropathy,without significant canal or foraminal narrowing. L4-L5: Moderate bilateral facet arthropathy. Mild diffuse disc bulge. Nosignificant canal or foraminal narrowing. L5-S1: Moderate bilateral facet nephropathy. Diffuse disc bulge. Mildbilateral foraminal narrowing. IMPRESSION: Mild to moderate lower lumbar spondylosis, without high-grade canal orforaminal narrowing. us Vipul Arreaga MD IMG MR XSPECIALTY Final Result documented in this encounter Visit Diagnoses Diagnosis Intervertebral disc disorders with radiculopathy, lumbar region- Primary Intervertebral disc disorders with radiculopathy, lumbar region documented in this encounter Care Teams Florist'S Decorator Relationship Specialty Start Date End Date Tre Zhao MD [address] [place] [phone] PCP - General Internal Medicine 12/22/21 documented as of this encounter Additional Source Comments The information contained in this document represents components of the legal health record. It is not the complete legal health record.[facility]
--- OUTSIDE RECORDS SUMMARY | 2025-09-04 14:10 | XMS_ITS | Encounter Summary ---
Author Organization [facility] Address [address] [facility] [address] [place] [phone] Phone Care Team Providers Care [employer] Umpire Name Role Phone Tre Zhao MD Primary Care Provider [phone] Reason for Referral * Occupational Therapy (Within 3 days (urgent)) - Closed Specialty Diagnoses / Procedures Referred By Ernesto farrell Referred To Contact Occupational Therapy Diagnoses Encounter for rehabilitation Right Lateral Epicondylitis Specific instructions / precautions: Procedures evaluate & treat Anjelica Mcgraw MD Phone: tel: fax: [email or web address]:[email or web address] [facility] [address] [place] [address] Phone: tel: Referral ID Status Reason Start Date Expiration Date Visits Re quested Visits Authorized [id number] Closed 06/19/2022 08/22/2022 13 13 Encounter Details Date Type Department Care Team (Latest Contact Info) Description 07/25/2022 Transcribe Orders [facility] [address] [place] [address] Anjelica Mcgraw MD [address] [facility] [address] [place] [phone] [email or web address] Encounter for rehabilitation (Primary Dx) Social History [...] Info) Description 11/18/2025 10:15 AM EST Appointment [facility], [facility] [address] [place] [address] Vipul Arreaga MD [address] [place] [phone] [email or web address] Scheduled Referrals Name Type Priority Associated Diagnoses Orde r Schedule Ambulatory referral to [facility] Occupational Therapy Outpatient Referral Routine Encounter for rehabilitation Ordered: 07/25/2022 documented as of this encounter Visit Diagnoses Diagnosis Encounter for rehabilitation- Primary documented in this encounter Additional Health Concerns Infection Onset Date Last Indicated Resolved Time CoV-Risk 11/10/2024 11/10/2024 11/21/2024 1:22 AM EST RSV 11/10/2024 11/10/2024 11/17/2024 1:24 AM EST documented as of this encounter Care Teams [employer] Umpire Relationship Specialty Start Date End Date Tre Zhao MD [address] [place] [phone] PCP - General Internal Medicine 12/22/21 documented as of this encounter Additional Source Comments The information contained in this document represents components of the legal health record. It is not the complete legal health record.[facility]
== END 2025-09-04 10:55 | disposition home or self-care (01) ==
LOC: HO.MAMMO 10:54
PROVIDERS: PCP Internal Medicine; Visit Provider Student in an Organized Health Care Education/Training Program
DX: M81.0 Age-related osteoporosis without current pathological fracture (principal)
CPT/HCPCS: 77080

== ENCOUNTER → 2025-09-04 11:00 | Outpatient (BNV) | payer MEDICARE, MEDICAID, SELFPAY | PROVIDERS: PCP Internal Medicine; Visit Provider Radiology Diagnostic Radiology | DX: E28.39 Other primary ovarian failure (principal) | CPT/HCPCS: 77080 ==